=== PATIENT | female | born 1960 | race Caucasian/White ===

== ENCOUNTER 2023-06-15 17:05 | Observation (INO) | payer OTHER ==
--- OUTSIDE RECORDS SUMMARY | 2023-06-15 17:19 | XMS REPORT | Continuity of Care Document ---
:1960 Author Organization [facility] t Address [address] [facility] [address] [place] [id number] Care Team Providers Name Role Phone Pcp, Patient Does Not Have A Primary Care Physician +[phone] Jamil Porter Attending Clinician Unavailable MCKAY JIMÉNEZ Attending Clinician Unavailable Mckay Jiménez MD Attending Clinician Doctor Unassigned, [place] Attending Clinician Unavailable Lashawn Attending Clinician Unavailable Damaris Tenorio Attending Clinician [phone] Rebekah Yusuf Attending Clinician [phone] Cachorro Rivera Attending Clinician [phone] Lashawn Admitting Clinician Unavailable Payers Payer Name Policy Type Policy Number Effective Date Expiration Date Nathaniel cuevas [employer]IG[employer] [id number] 2016 00:00:00 [facility] [id number] 2006 00:00:00 Problems Condition Condition Condition Status Onset Resolution Last Treating Co mments Source Name Details Category Date Date Treatment Clinician Date Hyperchole Hyperchole Problem Active [facility] sterolemia sterolemia 1-03 Me dical 00:00: 00 Irritable Irritable Problem Active [facility] via bowel Bowel 6-21 Medical syndrome Syndrome 00:00: characteri Characteri 00 zed by zed by constipati Constipati on on Diverticul Diverticul Problem Active [facility] itis itis 5-28 Medical 00:00: 00 Prediabete Prediabete Problem Active [facility] s s - Medical 00:00: 00 Hypothyroi Hypothyroi Problem Active [facility] dism dism 03-27 Medical 00:00: 00 Depressive Depressive Problem Active [facility] disorder Disorder 03-27 Medica l 00:00: 00 Gastro-eso Gastro-eso Problem Active [facility] phageal phageal 03-24 Medical reflux Reflux 00:00: disease Disease 00 with with esophagiti Esophagiti s s Hand Hand Problem Active [facility] eczema Eczema 10-25 Medical 00:00: 00 Candidiasi Candidiasi Problem Active [facility] s of s of 17 Medical vagina Vagina 00:00: 00 Acute Acute Problem Active 2018-08 [facility] bacterial Bacterial 1- Medi natasha bronchitis Bronchitis 00:00: 00 Obstructiv Obstructiv Problem Active 2018-08 [facility] e sleep e Sleep 1-25 Medical apnea of Apnea of 00:00: adult Adult 00 Acute Acute Problem Active [facility] urinary Urinary 9-12 Medical tract Tract 00:00: infection Infection 00 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 Hypothyroi 9-06 Me dical dism dism 00:00: 00 Acute Acute Problem Active [facility] bacterial Bacterial 9-06 Medi natasha sinusitis Sinusitis 00:00: 00 Infection Infection Problem Active [facility] via of axilla of Axilla 9-06 Medi natasha 00:00: 00 Hypoglycem Hypoglycem Problem Active [facility] ia ia 2- Medical 00:00: 00 Vitamin D Vitamin D Problem Active [facility] via deficiency Deficiency 2-25 Me dical 00:00: 00 Obesity Obesity Problem Active [facility] 2-25 Medical 00:00: 00 Anxiety Anxiety Problem Active [facility] 2-25 Medical 00:00: 00 Hypertensi Hypertensi Problem Active [facility] ve ve 2-25 Medical disorder Disorder 00:00: 00 Osteoporos Osteoporos Problem Active [facility] is is 2-25 Medical 00:00: 00 Fatigue Fatigue Problem Active [facility] 2-25 Medical 00:00: 00 No known No known Disease Unive rs active active ity of problems problems [facility] Allergies, Adverse Reactions, Alerts Allergy Allergy Status Severity Reaction(s) Onset Inactive Treating Comm ents Source Name Type Date Date Clinician NO KNOWN Drug Active Univers ALLERGIE Class ity of S [facility] Family History Family Member Diagnosis Comments Start Date Stop Date Source Natural father Heart failure [facility] Natural mother Alzheimer's disease [facility] Social History Social Habit Start Date Stop Date Quantity Comments Source Exposure to Not sure [facility] SARS-CoV-2 (event) [facility] orientation [facility] History of Social 2019-03-20 2019-03-[address] function 00:00:00 00:00:00 Hospital Alcohol intake 2018-11-27 2018-11-27 [facility] 00:[facility]:00 00:00:00 non-drinker of Hospital alcohol (finding) Tobacco use and 2018-11-23 2018-11-23 Smokeless [facility] exposure 00:00:00 00:00:00 tobacco non-user Hospital Sex Assigned At [birth year] [facility] 00:[facility] Hospital Smoking Status Start Date Stop Date Source Never smoked tobacco [facility] Medications Ordered Filled Start Stop Current Ordering Indication Dosage Frequency Signature Comments Components Source Medication Medication Date Date Medication? Clinician (SIG) Name Name gerber 2019- Yes Apply to [facility] 08-02 area(s) 2 ity of acetonide 00:00: (two) [place] 0.1 % cream 00 times Medical daily. Branch gerber 2020- Yes Apply to [facility] 08-02 area(s) 2 ity of acetonide 00:00: (two) [place] 0.1 % cream 00 times Medical daily. Branch radhaamjoey 2020- Yes Apply to [facility] 08-02 area(s) 2 ity of acetonide 00:00: (two) [place] 0.1 % cream 00 times Medical daily. Branch gerber 2020- Yes Apply to [facility] ne 08-02 area(s) 2 ity of acetonide 00:00: (two) [place] 0.1 % cream 00 times Medical daily. John triamcinolo 2019-08 Yes [id number] Apply to [facility] ne -02 area(s) 2 ity of acetonide 00:00: (two) [place] 0.1 % cream 00 times Medical daily. John triamcinolo 2018-08 Yes Apply to [facility] ne 0-30 area(s) 2 ity of acetonide 00:00: (two) [place] 0.1 % cream 00 times Medical daily. John triamcinolo 2018-08 Yes Apply to [facility] ne 0-30 area(s) 2 ity of acetonide 00:00: (two) [place] 0.1 % cream 00 times Medical daily. John triamcinolo 2018-08 Yes Apply to [facility] ne 0-30 area(s) 2 ity of acetonide 00:00: (two) [place] 0.1 % cream 00 times Medical daily. John triamcinolo 2018-08 Yes Apply to [facility] ne 0-30 area(s) 2 ity of acetonide 00:00: (two) [place] 0.1 % cream 00 times Medical daily. John triamcinolo 2018-08 Yes Apply to [facility] ne 0-30 area(s) 2 ity of acetonide 00:00: (two) [place] 0.1 % cream 00 times Medical daily. John triamcinolo 2018-08 Yes Apply to [facility] ne 0-30 area(s) 2 ity of acetonide 00:00: (two) [place] 0.1 % cream 00 times Medical daily. John IBU 800 mg Yes TAKE 1 [facility] di tablet 4-[address] [facility]TH [facility] 00 EVERY 6 l HOURS NEEDED CRAMPS SYNTHROID Yes TAKE 1 [facility] i 112 mcg 3-[address] tablet 00:00: MOUTH IN [facility] 00 THE l MORNING ON AN EMPTY STOMACH cholecalcif Yes TAKE ONE Me thodi nanette, 3-[address] vitamin D3, 00:00: MOUTH ONE [facility] 50,000 unit 00 TIME PER l capsule WEEK Diclofenac 2016-08 Yes Apply to Uni vers Sodium 0-30 area(s) 4 ity of (VOLTAREN) 00:00: (four) [place] 1 % gel 00 times Medical daily as Branch needed for Pain (scale 4-6) or Pain (scale 7-10) (1g applied up to 4 times daily). Diclofenac 2016-08 Yes Apply to Uni vers Sodium 0-30 area(s) 4 ity of (VOLTAREN) 00:00: (four) [place] 1 % gel 00 times Medical daily as Branch needed for Pain (scale 4-6) or Pain (scale 7-10) (1g applied up to 4 times daily). Diclofenac 2016-08 Yes Apply to Uni vers Sodium 0-30 area(s) 4 ity of (VOLTAREN) 00:00: (four) [place] 1 % gel 00 times Medical daily as Branch needed for Pain (scale 4-6) or Pain (scale 7-10) (1g applied up to 4 times daily). Diclofenac 2016-08 Yes Apply to Uni vers Sodium 0-30 area(s) 4 ity of (VOLTAREN) 00:00: (four) [place] 1 % gel 00 times Medical daily as Branch needed for Pain (scale 4-6) or Pain (scale 7-10) (1g applied up to 4 times daily). Diclofenac 2016-08 Yes Apply to Uni vers Sodium 0-30 area(s) 4 ity of (VOLTAREN) 00:00: (four) [place] 1 % gel 00 times Medical daily as Branch needed for Pain (scale 4-6) or Pain (scale 7-10) (1g applied up to 4 times daily). Diclofenac 2016-08 Yes Apply to Uni vers Sodium 0-30 area(s) 4 ity of (VOLTAREN) 00:00: (four) [place] 1 % gel 00 times Medical daily as Branch needed for Pain (scale 4-6) or Pain (scale 7-10) (1g applied up to 4 times daily). SYNTHROID 2016-08 Yes TAKE 1 Univer s 125 mcg 0-12 TABLET BY ity of tablet 00:00: MOUTH IN [place] THE Medical MORNING ON Branch AN EMPTY STOMACHE SYNTHROID 2016-08 Yes TAKE 1 Univer s 125 mcg 0-12 TABLET BY ity of tablet 00:00: MOUTH IN [place] THE Medical MORNING ON Branch AN EMPTY STOMACHE SYNTHROID 2016-08 Yes TAKE 1 Univer s 125 mcg 0-12 TABLET BY ity of tablet 00:00: MOUTH IN [place] 00 THE Medical MORNING ON Branch AN EMPTY STOMACHE SYNTHROID 2016-08 Yes TAKE 1 Univer s 125 mcg 0-12 TABLET BY ity of tablet 00:00: MOUTH IN [place] 00 THE Medical MORNING ON Branch AN EMPTY STOMACHE SYNTHROID 2016-08 Yes TAKE 1 Univer s 125 mcg 0-12 TABLET BY ity of tablet 00:00: MOUTH IN [place] 00 THE Medical MORNING ON Branch AN EMPTY STOMACHE SYNTHROID 2016-08 Yes TAKE 1 Univer s 125 mcg 0-12 TABLET BY ity of tablet 00:00: MOUTH IN [place] 00 THE Medical MORNING ON Branch AN EMPTY STOMACHE SERTraline 2016-08 Yes TAKE 1/2 Uni vers 50 mg 0-11 TABLET BY ity of tablet 00:00: MOUTH [place] 00 DAILY FOR Medical 7 DAYS Branch THEN 1 DAILY THEREAFTER SERTraline 2016-08 Yes TAKE 1/2 Uni vers 50 mg 0-11 TABLET BY ity of tablet 00:00: MOUTH [place] 00 DAILY FOR Medical 7 DAYS Branch THEN 1 DAILY THEREAFTER SERTraline 2016-08 Yes TAKE 1/2 Uni vers 50 mg 0-11 TABLET BY ity of tablet 00:00: MOUTH [place] 00 DAILY FOR Medical 7 DAYS Branch THEN 1 DAILY THEREAFTER SERTraline 2016-08 Yes TAKE 1/2 Uni vers 50 mg 0-11 TABLET BY ity of tablet 00:00: MOUTH [place] 00 DAILY FOR Medical 7 DAYS Branch THEN 1 DAILY THEREAFTER SERTraline 2016-08 Yes TAKE 1/2 Uni vers 50 mg 0-11 TABLET BY ity of tablet 00:00: MOUTH [place] 00 DAILY FOR Medical 7 DAYS Branch THEN 1 DAILY THEREAFTER SERTraline 2016-08 Yes TAKE 1/2 Uni vers 50 mg 0-11 TABLET BY ity of tablet 00:00: MOUTH [place] 00 DAILY FOR Medical 7 DAYS Branch THEN 1 DAILY THEREAFTER sertraline 2016-08 Yes TAKE 1/2 Met hodi (ZOLOFT) 50 0-[address] MG [facility] 7 DAYS THEN 1 DAILY THEREAFTER tretinoin 2014-08 Yes Apply to [facility] ers (RETIN-A) 0-27 affected ity of 0.025 % 00:00: [place] cream 00 bedtime. Medical Branch tretinoin 2014-08 Yes Apply to [facility] ers (RETIN-A) 0-27 affected ity of 0.025 % 00:00: [place] cream 00 bedtime. Medical Branch tretinoin 2014-08 Yes Apply to [facility] ers (RETIN-A) 0-27 affected ity of 0.025 % 00:00: [place] cream 00 bedtime. Medical Branch tretinoin 2014-08 Yes Apply to [facility] ers (RETIN-A) 0-27 affected ity of 0.025 % 00:00: [place] cream 00 bedtime. Medical Branch tretinoin 2014-08 Yes Apply to [facility] ers (RETIN-A) 0-27 affected ity of 0.025 % 00:00: [place] cream 00 bedtime. Medical Branch tretinoin 2014-08 Yes Apply to [facility] ers (RETIN-A) 0-27 affected ity of 0.025 % 00:00: [place](s) [place] cream 00 bedtime. Medical Branch METFORMIN Yes 3 (three) Uni vers HCL 6-30 times ity of (METFORMIN, 18:52: daily. [place] BULK, MISC) 08 Medical Branch lamoTRIgine Yes 200mg Take 200 U nivers (LAMICTAL) 6-30 mg by ity of 200 mg 18:52: mouth [place] tablet 08 daily. Medical Branch ALPRAZolam Yes 1mg Take 1 mg Un tata (XANAX) 1 6-30 by mouth ity of mg tablet 18:52: [place]. [place] 08 Medical Branch lisdexamfet Yes 50mg Take 50 mg Univers amine 6-30 by mouth ity of (VYVANSE) 18:52: every [place] 50 mg 08 morning. Medical capsule Branch METFORMIN Yes 3 (three) Uni vers HCL 6-30 times ity of (METFORMIN, 18:52: daily. [place] BULK, MISC) 08 Medical Branch lamoTRIgine Yes 200mg Take 200 U nivers (LAMICTAL) 6-30 mg by ity of 200 mg 18:52: mouth [place] tablet 08 daily. Medical Branch ALPRAZolam Yes 1mg Take 1 mg Un tata (XANAX) 1 6-30 by mouth ity of mg tablet 18:52: as needed. [place] 08 Medical Branch lisdexamfet Yes 50mg Take 50 mg Univers amine 6-30 by mouth ity of (VYVANSE) 18:52: every [place] 50 mg 08 morning. Medical capsule Branch METFORMIN Yes 3 (three) Uni vers HCL 6-30 times ity of (METFORMIN, 18:52: daily. [employer] [employer]) 08 Medical Branch lamoTRIgine Yes 200mg Take 200 U nivers (LAMICTAL) 6-30 mg by ity of 200 mg 18:52: mouth [place] tablet 08 daily. Medical Branch ALPRAZolam Yes 1mg Take 1 mg Un tata (XANAX) 1 6-30 by mouth ity of mg tablet 18:52: as needed. [place] 08 Medical Branch lisdexamfet Yes 50mg Take 50 mg Univers amine 6-30 by mouth ity of (VYVANSE) 18:52: every [place] 50 mg 08 morning. Medical capsule Branch METFORMIN Yes 3 (three) Uni vers HCL 6-30 times ity of (METFORMIN, 13:52: daily. [employer]) 08 Medical Branch lamoTRIgine Yes 200mg Take 200 U nivers (LAMICTAL) 6-30 mg by ity of 200 mg 13:52: mouth [place] tablet 08 daily. Medical Branch ALPRAZolam Yes 1mg Take 1 mg Un tata (XANAX) 1 6-30 by mouth ity of mg tablet 13:52: as needed. [place] 08 Medical Branch lisdexamfet Yes 50mg Take 50 mg Univers amine 6-30 by mouth ity of (VYVANSE) 13:52: every [place] 50 mg 08 morning. Medical capsule Branch METFORMIN Yes 3 (three) Uni vers HCL 6-30 times ity of (METFORMIN, 13:52: daily. [employer]) 08 Medical Branch lamoTRIgine Yes 200mg Take 200 U nivers (LAMICTAL) 6-30 mg by ity of 200 mg 13:52: mouth [place] tablet 08 daily. Medical Branch ALPRAZolam Yes 1mg Take 1 mg Un tata (XANAX) 1 6-30 by mouth ity of mg tablet 13:52: as needed. [place] 08 Medical Branch lisdexamfet Yes 50mg Take 50 mg Univers amine 6-30 by mouth ity of (VYVANSE) 13:52: every [place] 50 mg 08 morning. Medical capsule Branch METFORMIN Yes 3 (three) Uni vers HCL 6-30 times ity of (METFORMIN, 13:52: daily. [place] BULK, MISC) 08 Medical Branch lamoTRIgine Yes 200mg Take 200 U nivers (LAMICTAL) 6-30 mg by ity of 200 mg 13:52: mouth [place] tablet 08 daily. Medical Branch ALPRAZolam Yes 1mg Take 1 mg Un tata (XANAX) 1 6-30 by mouth ity of mg tablet 13:52: as needed. [place] 08 Medical Branch lisdexamfet Yes 50mg Take 50 mg Univers amine 6-30 by mouth ity of (VYVANSE) 13:52: every [place] 50 mg 08 morning. Medical capsule Branch tretinoin 2012-08 Yes Apply to [facility] ers (RETIN-A) 2-30 affected ity of 0.025 % 00:00: [place] cream 00 bedtime. Medical Branch tretinoin 2012-08 Yes Apply to [facility] ers (RETIN-A) 2-30 affected ity of 0.025 % 00:00: [place] cream 00 bedtime. Medical Branch tretinoin 2012-08 Yes Apply to [facility] ers (RETIN-A) 2-30 affected ity of 0.025 % 00:00: area[place]s) at [place] cream 00 bedtime. Medical Branch tretinoin 2012-08 Yes Apply to [facility] ers (RETIN-A) 2-30 affected ity of 0.025 % 00:00: area(s) at [place] cream 00 bedtime. Medical Branch tretinoin 2012-08 Yes Apply to [facility] ers (RETIN-A) 2-30 affected ity of 0.025 % 00:00: area[place]s) at [place] cream 00 bedtime. Medical Branch tretinoin 2012-08 Yes Apply to [facility] ers (RETIN-A) 2-30 affected ity of 0.025 % 00:00: area[place] at [place] cream 00 bedtime. Medical Branch buPROPion 2010-08 Yes [id number] 150mg Take 1 Tab Univers SR 2-23 by mouth. ity of (WELLBUTRIN 00:00: [place] SR) 150 mg 00 Medical SR tablet Branch spironolact 2010-08 Yes [id number] 100mg Take 1 Tab Univers one 2-23 by mouth ity of (ALDACTONE) 00:00: daily. [place] 100 mg 00 Medical tablet Branch buPROPion 2010-08 Yes [id number] 150mg Take 1 Tab Univers SR 2-23 by mouth. ity of (WELLBUTRIN 00:00: [place] SR) 150 mg 00 Medical SR tablet Branch spironolact 2010-08 Yes [id number] 100mg Take 1 Tab Univers one 2-23 by mouth ity of (ALDACTONE) 00:00: daily. [place] 100 mg 00 Medical tablet Branch buPROPion 2010-08 Yes [id number] 150mg Take 1 Tab Univers SR 2-23 by mouth. ity of (WELLBUTRIN 00:00: [place] SR) 150 mg 00 Medical SR tablet Branch spironolact 2010-08 Yes [id number] 100mg Take 1 Tab Univers one 2-23 by mouth ity of (ALDACTONE) 00:00: daily. [place] 100 mg 00 Medical tablet Branch buPROPion 2010-08 Yes [id number] 150mg Take 1 Tab Univers SR 2-23 by mouth. ity of (WELLBUTRIN 00:00: [place] SR) 150 mg 00 Medical SR tablet Branch buPROPion 2010-08 Yes [id number] 150mg Take 1 Tab Univers SR 2-23 by mouth. ity of (WELLBUTRIN 00:00: [place] SR) 150 mg 00 Medical SR tablet Branch spironolact 2010-08 Yes [id number] 100mg Take 1 Tab Univers one 2-23 by mouth ity of (ALDACTONE) 00:00: daily. [place] 100 mg 00 Medical tablet Branch spironolact 2010-08 Yes [id number] 100mg Take 1 Tab Univers one 2-23 by mouth ity of (ALDACTONE) 00:00: daily. [place] 100 mg 00 Medical tablet Branch buPROPion 2010-08 Yes [id number] 150mg Take 1 Tab Univers SR 2-23 by mouth. ity of (WELLBUTRIN 00:00: [place] SR) 150 mg 00 Medical SR tablet Branch spironolact 2010-08 Yes [id number] 100mg Take 1 Tab Univers one 2-23 by mouth ity of (ALDACTONE) 00:00: daily. [place] 100 mg 00 Medical tablet Branch promethazin promethazin No promethazi [facility] e 25 mg e 25 mg ne 25 mg Medic al tablet TAKE tablet TAKE tablet 1 TABLET BY 1 TABLET BY TAKE 1 MOUTH EVERY MOUTH EVERY TABLET BY 4 TO 6 4 TO 6 MOUTH HOURS HOURS EVERY 4 TO NEEDED NEEDED 6 HOURS NAUSEA AND NAUSEA AND NEEDED VOMITING VOMITING NAUSEA AND VOMITING Synthroid Synthroid No Synthroid [facility] 125 mcg 125 mcg 125 mcg Medica l tablet TAKE tablet TAKE tablet 1 TABLET BY 1 TABLET BY TAKE 1 MOUTH EVERY MOUTH EVERY TABLET BY DAY DAY MOUTH DIRECTED DIRECTED EVERY DAY DIRECTED triamcinolo triamcinolo No triamcinol [facility] ne ne one Medical acetonide acetonide acetonide 0.1 % 0.1 % 0.1 % topical topical topical cream APPLY cream APPLY cream THIN COAT THIN COAT APPLY THIN TO AFFECTED TO AFFECTED COAT TO AREA TWICE AREA TWICE AFFECTED A DAY FOR A DAY FOR AREA TWICE 14 DAYS 14 DAYS A DAY FOR 14 DAYS Zyrtec 10 Zyrtec 10 No 1 Q12H Zyrtec 10 [facility] mg tablet mg tablet mg tablet Medical Take 1 Take 1 Take 1 tablet tablet tablet every 12 every 12 every 12 hours by hours by hours by oral route oral route oral route for 14 for 14 for 14 days. days. days. Align 10.5 Align 10.5 No Align 10.5 [facility] mg (10 mg (10 mg (10 Medical million million million cell) cell) cell) chewable chewable chewable tablet Take tablet Take tablet 1 tablet 1 tablet Take 1 every day every day tablet by oral by oral every day route as route as by oral directed directed route as for 90 for 90 directed days. days. for 90 days. amitriptyli amitriptyli No .5 Q1D amitriptyl [facility] ne 10 mg ne 10 mg ine 10 mg Me dical tablet Take tablet Take tablet 0.5 tablets 0.5 tablets Take 0.5 every day every day tablets by oral by oral every day route at route at by oral bedtime for bedtime for route at 30 days. 30 days. bedtime for 30 days. bupropion bupropion No 1 Q1D bupropion [facility] HCl XL 300 HCl XL 300 HCl XL 300 Medical mg 24 hr mg 24 hr mg 24 hr tablet, tablet, tablet, extended extended extended release release release Take 1 Take 1 Take 1 tablet tablet tablet every day every day every day by oral by oral by oral route for route for route for 90 days. 90 days. 90 days. buspirone 5 buspirone 5 No 1 BID buspirone [facility] mg tablet mg tablet 5 mg Medic al Take 1 Take 1 tablet tablet tablet Take 1 twice a day twice a day tablet by oral by oral twice a route as route as day by needed for needed for oral route 30 days. 30 days. as needed for for for 30 anxiety/rousseau anxiety/rousseau days. for ic disorder ic disorder anxiety/pa as needed as needed chinedu disorder as needed cholecalcif cholecalcif No cholecalci [facility] nanette nanette ferol Medical (vitamin (vitamin (vitamin D3) 1,250 D3) 1,250 D3) 1,250 mcg (50,000 mcg (50,000 mcg unit) unit) (50,000 capsule capsule unit) TAKE ONE TAKE ONE capsule CAPSULE BY CAPSULE BY TAKE ONE MOUTH ONE MOUTH ONE CAPSULE BY TIME PER TIME PER MOUTH ONE WEEK WEEK TIME PER WEEK cholestyram cholestyram No cholestyra [facility] ine (with ine (with mine (with Medical sugar) 4 sugar) 4 sugar) 4 gram powder gram powder gram for susp in for susp in powder for a packet a packet susp in a MIX 1 MIX 1 packet MIX PACKET WITH PACKET WITH 1 PACKET WATER OR WATER OR WITH WATER NON NON OR NON CARBONATED CARBONATED CARBONATED DRINK ONCE DRINK ONCE DRINK ONCE A DAY A DAY A DAY ORALLY 30 ORALLY 30 ORALLY 30 DAY(S) DAY(S) DAY(S) dicyclomine dicyclomine No dicyclomin [facility] 20 mg 20 mg e 20 mg Medical tablet TAKE tablet TAKE tablet 1 TABLET 4 1 TABLET 4 TAKE 1 TIMES A DAY TIMES A DAY TABLET 4 BY ORAL BY ORAL TIMES A ROUTE ROUTE DAY BY NEEDED FOR NEEDED FOR ORAL ROUTE 90 DAYS. 90 DAYS. NEEDED FOR 90 DAYS. fluorouraci fluorouraci No fluorourac [facility] l 5 % l 5 % il 5 % Medical topical topical topical cream cream cream fluticasone fluticasone No fluticason [facility] propionate propionate e Med ical 50 50 propionate mcg/actuati mcg/actuati 50 on nasal on nasal mcg/actuat spray,suspe spray,suspe ion nasal nsion USE 1 nsion USE 1 spray,susp SPRAY INTO SPRAY INTO ension USE EACH EACH 1 SPRAY NOSTRIL NOSTRIL INTO EACH EVERY DAY EVERY DAY NOSTRIL EVERY DAY metronidazo metronidazo No metronidaz [facility] le 500 mg le 500 mg ole 500 mg Medical tablet TAKE tablet TAKE tablet 1 TABLET 1 TABLET TAKE 1 EVERY 8 EVERY 8 TABLET HOURS BY HOURS BY EVERY 8 ORAL ROUTE ORAL ROUTE HOURS BY FOR 7 DAYS. FOR 7 DAYS. ORAL ROUTE FOR 7 DAYS. Nystop Nystop No Nystop [facility] 100,000 100,000 100,000 Medica l unit/gram unit/gram unit/gram topical topical topical powder powder powder APPLY TO APPLY TO APPLY TO THE THE THE AFFECTED AFFECTED AFFECTED AREA(S) BY AREA(S) BY AREA(S) BY TOPICAL TOPICAL TOPICAL ROUTE 2 ROUTE 2 ROUTE 2 TIMES PER TIMES PER TIMES PER DAY DAY DAY omeprazole omeprazole No omeprazole [facility] 40 mg 40 mg 40 mg Medical capsule,del capsule,del capsule,de ayed ayed layed release release release TAKE 1 TAKE 1 TAKE 1 CAPSULE BY CAPSULE BY CAPSULE BY MOUTH EVERY MOUTH EVERY MOUTH DAY DAY EVERY DAY ondansetron ondansetron No ondansetro [facility] HCl 4 mg HCl 4 mg n HCl 4 mg M edical tablet TAKE tablet TAKE tablet 2 TABLETS 2 TABLETS TAKE 2 TWICE A DAY TWICE A DAY TABLETS BY ORAL BY ORAL TWICE A ROUTE ROUTE DAY BY NEEDED FOR NEEDED FOR ORAL ROUTE 10 DAYS. 10 DAYS. NEEDED FOR 10 DAYS. OneTouch OneTouch No OneTouch [facility] via [facility] Medical Lancets 33 Lancets 33 Lancets 33 gauge gauge gauge OneTouch OneTouch No OneTouch [facility] via Ultra Blue Ultra Blue Ultra Blue Medical Test Strip Test Strip Test Strip OneTouch OneTouch No OneTouch [facility] via Ultra2 Ultra2 Ultra2 Medical Meter kit Meter kit Meter kit OneTouch OneTouch No OneTouch [facility] via UltraSoft UltraSoft UltraSoft Medical Lancets Lancets Lancets Take 1 each Take 1 each Take 1 4 times a 4 times a each 4 day by day by times a miscell. miscell. day by route for route for miscell. 30 days. 30 days. route for 30 days. prednisone prednisone No prednisone [facility] 20 mg 20 mg 20 mg Medical tablet TAKE tablet TAKE tablet 1 TABLET BY 1 TABLET BY TAKE 1 MOUTH EVERY MOUTH EVERY TABLET BY DAY DAY MOUTH EVERY DAY promethazin promethazin No promethazi [facility] e 25 mg e 25 mg ne 25 mg Medic al tablet TAKE tablet TAKE tablet 1 TABLET BY 1 TABLET BY TAKE 1 MOUTH EVERY MOUTH EVERY TABLET BY 4 TO 6 4 TO 6 MOUTH HOURS HOURS EVERY 4 TO NEEDED NEEDED 6 HOURS NAUSEA AND NAUSEA AND NEEDED VOMITING VOMITING NAUSEA AND VOMITING Synthroid Synthroid No Synthroid [facility] 125 mcg 125 mcg 125 mcg Medica l tablet TAKE tablet TAKE tablet 1 TABLET BY 1 TABLET BY TAKE 1 MOUTH EVERY MOUTH EVERY TABLET BY DAY DAY MOUTH DIRECTED DIRECTED EVERY DAY DIRECTED triamcinolo triamcinolo No triamcinol [facility] ne ne one Medical acetonide acetonide acetonide 0.1 % 0.1 % 0.1 % topical topical topical cream APPLY cream APPLY cream THIN COAT THIN COAT APPLY THIN TO AFFECTED TO AFFECTED COAT TO AREA TWICE AREA TWICE AFFECTED A DAY FOR A DAY FOR AREA TWICE 14 DAYS 14 DAYS A DAY FOR 14 DAYS Zyrtec 10 Zyrtec 10 No 1 Q12H Zyrtec 10 [facility] mg tablet mg tablet mg tablet Medical Take 1 Take 1 Take 1 tablet tablet tablet every 12 every 12 every 12 hours by hours by hours by oral route oral route oral route for 14 for 14 for 14 days. days. days. Align 10.5 Align 10.5 No Align 10.5 [facility] mg (10 mg (10 mg (10 Medical million million million cell) cell) cell) chewable chewable chewable tablet Take tablet Take tablet 1 tablet 1 tablet Take 1 every day every day tablet by oral by oral every day route as route as by oral directed directed route as for 90 for 90 directed days. days. for 90 days. bupropion bupropion No 1 Q1D bupropion [facility] HCl XL 300 HCl XL 300 HCl XL 300 Medical mg 24 hr mg 24 hr mg 24 hr tablet, tablet, tablet, extended extended extended release release release Take 1 Take 1 Take 1 tablet tablet tablet every day every day every day by oral by oral by oral route for route for route for 90 days. 90 days. 90 days. cetirizine cetirizine No 1 Q12H cetirizine [facility] 10 mg 10 mg 10 mg Medical tablet Take tablet Take tablet 1 tablet 1 tablet Take 1 every 12 every 12 tablet hours by hours by every 12 oral route oral route hours by for 14 for 14 oral route days. days. for 14 days. cholecalcif cholecalcif No cholecalci [facility] nanette nanette ferol Medical (vitamin (vitamin (vitamin D3) 1,250 D3) 1,250 D3) 1,250 mcg (50,000 mcg (50,000 mcg unit) unit) (50,000 capsule capsule unit) TAKE ONE TAKE ONE capsule CAPSULE BY CAPSULE BY TAKE ONE MOUTH ONE MOUTH ONE CAPSULE BY TIME PER TIME PER MOUTH ONE WEEK WEEK TIME PER WEEK cholestyram cholestyram No cholestyra [facility] ine (with ine (with mine (with Medical sugar) 4 sugar) 4 sugar) 4 gram powder gram powder gram for susp in for susp in powder for a packet a packet susp in a MIX 1 MIX 1 packet MIX PACKET WITH PACKET WITH 1 PACKET WATER OR WATER OR WITH WATER NON NON OR NON CARBONATED CARBONATED CARBONATED DRINK ONCE DRINK ONCE DRINK ONCE A DAY A DAY A DAY ORALLY 30 ORALLY 30 ORALLY 30 DAY(S) DAY(S) DAY(S) clobetasol- clobetasol- No clobetasol [facility] emollient emollient -emollient Medical 0.05 % 0.05 % 0.05 % topical topical topical cream APPLY cream APPLY cream A THIN A THIN APPLY A LAYER TO LAYER TO THIN LAYER THE THE TO THE AFFECTED AFFECTED AFFECTED AREA(S) BY AREA(S) BY AREA(S) BY TOPICAL TOPICAL TOPICAL ROUTE 2 ROUTE 2 ROUTE 2 TIMES PER TIMES PER TIMES PER DAY DAY DAY Nystop Nystop No Nystop [facility] 100,000 100,000 100,000 Medica l unit/gram unit/gram unit/gram topical topical topical powder powder powder APPLY TO APPLY TO APPLY TO THE THE THE AFFECTED AFFECTED AFFECTED AREA(S) BY AREA(S) BY AREA(S) BY TOPICAL TOPICAL TOPICAL ROUTE 2 ROUTE 2 ROUTE 2 TIMES PER TIMES PER TIMES PER DAY DAY DAY OneTouch OneTouch No OneTouch [facility] via [facility] Lancets 33 Lancets 33 Lancets 33 gauge gauge gauge OneTouch OneTouch No OneTouch [facility] via Ultra Blue Ultra Blue Ultra Blue Medical Test Strip Test Strip Test Strip OneTouch OneTouch No OneTouch [facility] via Ultra2 Ultra2 Ultra2 Medical Meter kit Meter kit Meter kit OneTouch OneTouch No OneTouch [facility] via UltraSoft UltraSoft UltraSoft Medical Lancets Lancets Lancets Take 1 each Take 1 each Take 1 4 times a 4 times a each 4 day by day by times a miscell. miscell. day by route for route for miscell. 30 days. 30 days. route for 30 days. Synthroid Synthroid No Synthroid [facility] 125 mcg 125 mcg 125 mcg Medica l tablet TAKE tablet TAKE tablet 1 TABLET BY 1 TABLET BY TAKE 1 MOUTH EVERY MOUTH EVERY TABLET BY DAY DAY MOUTH DIRECTED DIRECTED EVERY DAY DIRECTED triamcinolo triamcinolo No triamcinol [facility] ne ne one Medical acetonide acetonide acetonide 0.1 % 0.1 % 0.1 % topical topical topical cream APPLY cream APPLY cream THIN COAT THIN COAT APPLY THIN TO AFFECTED TO AFFECTED COAT TO AREA TWICE AREA TWICE AFFECTED A DAY FOR A DAY FOR AREA TWICE 14 DAYS 14 DAYS A DAY FOR 14 DAYS Align 10.5 Align 10.5 No Align 10.5 [facility] mg (10 mg (10 mg (10 Medical million million million cell) cell) cell) chewable chewable chewable tablet Take tablet Take tablet 1 tablet 1 tablet Take 1 every day every day tablet by oral by oral every day route as route as by oral directed directed route as for 90 for 90 directed days. days. for 90 days. bupropion bupropion No 1 Q1D bupropion [facility] HCl XL 300 HCl XL 300 HCl XL 300 Medical mg 24 hr mg 24 hr mg 24 hr tablet, tablet, tablet, extended extended extended release release release Take 1 Take 1 Take 1 tablet tablet tablet every day every day every day by oral by oral by oral route for route for route for 90 days. 90 days. 90 days. cetirizine cetirizine No 1 Q12H cetirizine [facility] 10 mg 10 mg 10 mg Medical tablet Take tablet Take tablet 1 tablet 1 tablet Take 1 every 12 every 12 tablet hours by hours by every 12 oral route oral route hours by for 14 for 14 oral route days. days. for 14 days. cholecalcif cholecalcif No cholecalci [facility] nanette nanette ferol Medical (vitamin (vitamin (vitamin D3) 1,250 D3) 1,250 D3) 1,250 mcg (50,000 mcg (50,000 mcg unit) unit) (50,000 capsule capsule unit) TAKE ONE TAKE ONE capsule CAPSULE BY CAPSULE BY TAKE ONE MOUTH ONE MOUTH ONE CAPSULE BY TIME PER TIME PER MOUTH ONE WEEK WEEK TIME PER WEEK cholestyram cholestyram No cholestyra [facility] ine (with ine (with mine (with Medical sugar) 4 sugar) 4 sugar) 4 gram powder gram powder gram for susp in for susp in powder for a packet a packet susp in a MIX 1 MIX 1 packet MIX PACKET WITH PACKET WITH 1 PACKET WATER OR WATER OR WITH WATER NON NON OR NON CARBONATED CARBONATED CARBONATED DRINK ONCE DRINK ONCE DRINK ONCE A DAY A DAY A DAY ORALLY 30 ORALLY 30 ORALLY 30 DAY(S) DAY(S) DAY(S) clobetasol- clobetasol- No clobetasol [facility] emollient emollient -emollient Medical 0.05 % 0.05 % 0.05 % topical topical topical cream APPLY cream APPLY cream A THIN A THIN APPLY A LAYER TO LAYER TO THIN LAYER THE THE TO THE AFFECTED AFFECTED AFFECTED AREA(S) BY AREA(S) BY AREA(S) BY TOPICAL TOPICAL TOPICAL ROUTE 2 ROUTE 2 ROUTE 2 TIMES PER TIMES PER TIMES PER DAY DAY DAY Nystop Nystop No Nystop [facility] 100,000 100,000 100,000 Medica l unit/gram unit/gram unit/gram topical topical topical powder powder powder APPLY TO APPLY TO APPLY TO THE THE THE AFFECTED AFFECTED AFFECTED AREA(S) BY AREA(S) BY AREA(S) BY TOPICAL TOPICAL TOPICAL ROUTE 2 ROUTE 2 ROUTE 2 TIMES PER TIMES PER TIMES PER DAY DAY DAY OneTouch OneTouch No OneTouch [facility] via [facility] Lancets 33 Lancets 33 Lancets 33 gauge gauge gauge OneTouch OneTouch No OneTouch [facility] via Ultra Blue Ultra Blue Ultra Blue Medical Test Strip Test Strip Test Strip OneTouch OneTouch No OneTouch [facility] via Ultra2 Ultra2 Ultra2 Medical Meter kit Meter kit Meter kit OneTouch OneTouch No OneTouch [facility] via UltraSoft UltraSoft UltraSoft Medical Lancets Lancets Lancets Take 1 each Take 1 each Take 1 4 times a 4 times a each 4 day by day by times a miscell. miscell. day by route for route for miscell. 30 days. 30 days. route for 30 days. Synthroid Synthroid No Synthroid [facility] 125 mcg 125 mcg 125 mcg Medica l tablet TAKE tablet TAKE tablet 1 TABLET BY 1 TABLET BY TAKE 1 MOUTH EVERY MOUTH EVERY TABLET BY DAY DAY MOUTH DIRECTED DIRECTED EVERY DAY DIRECTED triamcinolo triamcinolo No triamcinol [facility] ne ne one Medical acetonide acetonide acetonide 0.1 % 0.1 % 0.1 % topical topical topical cream APPLY cream APPLY cream THIN COAT THIN COAT APPLY THIN TO AFFECTED TO AFFECTED COAT TO AREA TWICE AREA TWICE AFFECTED A DAY FOR A DAY FOR AREA TWICE 14 DAYS 14 DAYS A DAY FOR 14 DAYS Align 10.5 Align 10.5 No Align 10.5 [facility] mg (10 mg (10 mg (10 Medical million million million cell) cell) cell) chewable chewable chewable tablet Take tablet Take tablet 1 tablet 1 tablet Take 1 every day every day tablet by oral by oral every day route as route as by oral directed directed route as for 90 for 90 directed days. days. for 90 days. amitriptyli amitriptyli No amitriptyl [facility] ne 10 mg ne 10 mg ine 10 mg Me dical tablet TAKE tablet TAKE tablet 0.5 TABLETS 0.5 TABLETS TAKE 0.5 EVERY DAY EVERY DAY TABLETS BY ORAL BY ORAL EVERY DAY ROUTE AT ROUTE AT BY ORAL BEDTIME FOR BEDTIME FOR ROUTE AT 30 DAYS. 30 DAYS. BEDTIME FOR 30 DAYS. bupropion bupropion No bupropion [facility] HCl XL 300 HCl XL 300 HCl XL 300 Medical mg 24 hr mg 24 hr mg 24 hr tablet, tablet, tablet, extended extended extended release release release TAKE 1 TAKE 1 TAKE 1 TABLET BY TABLET BY TABLET BY MOUTH EVERY MOUTH EVERY MOUTH DAY DAY EVERY DAY cetirizine cetirizine No cetirizine [facility] 10 mg 10 mg 10 mg Medical tablet TAKE tablet TAKE tablet 1 TABLET BY 1 TABLET BY TAKE 1 MOUTH EVERY MOUTH EVERY TABLET BY 12 HOURS 12 HOURS MOUTH FOR 14 DAYS FOR 14 DAYS EVERY 12 HOURS FOR 14 DAYS cholecalcif cholecalcif No cholecalci [facility] nanette nanette ferol Medical (vitamin (vitamin (vitamin D3) 1,250 D3) 1,250 D3) 1,250 mcg (50,000 mcg (50,000 mcg unit) unit) (50,000 capsule capsule unit) TAKE ONE TAKE ONE capsule CAPSULE BY CAPSULE BY TAKE ONE MOUTH ONE MOUTH ONE CAPSULE BY TIME PER TIME PER MOUTH ONE WEEK WEEK TIME PER WEEK cholestyram cholestyram No cholestyra [facility] ine (with ine (with mine (with Medical sugar) 4 sugar) 4 sugar) 4 gram powder gram powder gram for susp in for susp in powder for a packet a packet susp in a MIX 1 MIX 1 packet MIX PACKET WITH PACKET WITH 1 PACKET WATER OR WATER OR WITH WATER NON NON OR NON CARBONATED CARBONATED CARBONATED DRINK ONCE DRINK ONCE DRINK ONCE A DAY BY A DAY BY A DAY BY MOUTH FOR MOUTH FOR MOUTH FOR 30 DAYS 30 DAYS 30 DAYS clobetasol- clobetasol- No clobetasol [facility] emollient emollient -emollient Medical 0.05 % 0.05 % 0.05 % topical topical topical cream APPLY cream APPLY cream A THIN A THIN APPLY A LAYER TO LAYER TO THIN LAYER THE THE TO THE AFFECTED AFFECTED AFFECTED AREA(S) BY AREA(S) BY AREA(S) BY TOPICAL TOPICAL TOPICAL ROUTE 2 ROUTE 2 ROUTE 2 TIMES PER TIMES PER TIMES PER DAY DAY DAY meloxicam meloxicam No 1 Q1D meloxicam [facility] 7.5 mg 7.5 mg 7.5 mg Medical tablet Take tablet Take tablet 1 tablet 1 tablet Take 1 every day every day tablet by oral by oral every day route for route for by oral 30 days. 30 days. route for 30 days. Nystop Nystop No Nystop [facility] 100,000 100,000 100,000 Medica l unit/gram unit/gram unit/gram topical topical topical powder powder powder APPLY TO APPLY TO APPLY TO THE THE THE AFFECTED AFFECTED AFFECTED AREA(S) BY AREA(S) BY AREA(S) BY TOPICAL TOPICAL TOPICAL ROUTE 2 ROUTE 2 ROUTE 2 TIMES PER TIMES PER TIMES PER DAY DAY DAY OneTouch OneTouch No OneTouch [facility] via [facility] Lancets 33 Lancets 33 Lancets 33 gauge gauge gauge OneTouch OneTouch No OneTouch [facility] via Ultra Blue Ultra Blue Ultra Blue Medical Test Strip Test Strip Test Strip OneTouch OneTouch No OneTouch [facility] via Ultra2 Ultra2 Ultra2 Medical Meter kit Meter kit Meter kit OneTouch OneTouch No OneTouch [facility] via UltraSoft UltraSoft UltraSoft Medical Lancets Lancets Lancets Take 1 each Take 1 each Take 1 4 times a 4 times a each 4 day by day by times a miscell. miscell. day by route for route for miscell. 30 days. 30 days. route for 30 days. Synthroid Synthroid No Synthroid [facility] 125 mcg 125 mcg 125 mcg Medica l tablet TAKE tablet TAKE tablet 1 TABLET BY 1 TABLET BY TAKE 1 MOUTH EVERY MOUTH EVERY TABLET BY DAY DAY MOUTH DIRECTED DIRECTED EVERY DAY DIRECTED triamcinolo triamcinolo No triamcinol [facility] ne ne one Medical acetonide acetonide acetonide 0.1 % 0.1 % 0.1 % topical topical topical cream APPLY cream APPLY cream THIN COAT THIN COAT APPLY THIN TO AFFECTED TO AFFECTED COAT TO AREA TWICE AREA TWICE AFFECTED A DAY FOR A DAY FOR AREA TWICE 14 DAYS 14 DAYS A DAY FOR 14 DAYS Align 10.5 Align 10.5 No Align 10.5 [facility] mg (10 mg (10 mg (10 Medical million million million cell) cell) cell) chewable chewable chewable tablet Take tablet Take tablet 1 tablet 1 tablet Take 1 every day every day tablet by oral by oral every day route as route as by oral directed directed route as for 90 for 90 directed days. days. for 90 days. amitriptyli amitriptyli No amitriptyl [facility] ne 10 mg ne 10 mg ine 10 mg Me dical tablet TAKE tablet TAKE tablet 0.5 TABLETS 0.5 TABLETS TAKE 0.5 EVERY DAY EVERY DAY TABLETS BY ORAL BY ORAL EVERY DAY ROUTE AT ROUTE AT BY ORAL BEDTIME FOR BEDTIME FOR ROUTE AT 30 DAYS. 30 DAYS. BEDTIME FOR 30 DAYS. bupropion bupropion No bupropion [facility] HCl XL 300 HCl XL 300 HCl XL 300 Medical mg 24 hr mg 24 hr mg 24 hr tablet, tablet, tablet, extended extended extended release release release TAKE 1 TAKE 1 TAKE 1 TABLET BY TABLET BY TABLET BY MOUTH EVERY MOUTH EVERY MOUTH DAY DAY EVERY DAY cetirizine cetirizine No cetirizine [facility] 10 mg 10 mg 10 mg Medical tablet TAKE tablet TAKE tablet 1 TABLET BY 1 TABLET BY TAKE 1 MOUTH EVERY MOUTH EVERY TABLET BY 12 HOURS 12 HOURS MOUTH FOR 14 DAYS FOR 14 DAYS EVERY 12 HOURS FOR 14 DAYS cholecalcif cholecalcif No cholecalci [facility] nanette nanette ferol Medical (vitamin (vitamin (vitamin D3) 1,250 D3) 1,250 D3) 1,250 mcg (50,000 mcg (50,000 mcg unit) unit) (50,000 capsule capsule unit) TAKE ONE TAKE ONE capsule CAPSULE BY CAPSULE BY TAKE ONE MOUTH ONE MOUTH ONE CAPSULE BY TIME PER TIME PER MOUTH ONE WEEK WEEK TIME PER WEEK cholestyram cholestyram No cholestyra [facility] ine (with ine (with mine (with Medical sugar) 4 sugar) 4 sugar) 4 gram powder gram powder gram for susp in for susp in powder for a packet a packet susp in a MIX 1 MIX 1 packet MIX PACKET WITH PACKET WITH 1 PACKET WATER OR WATER OR WITH WATER NON NON OR NON CARBONATED CARBONATED CARBONATED DRINK ONCE DRINK ONCE DRINK ONCE A DAY BY A DAY BY A DAY BY MOUTH FOR MOUTH FOR MOUTH FOR 30 DAYS 30 DAYS 30 DAYS clobetasol- clobetasol- No clobetasol [facility] emollient emollient -emollient Medical 0.05 % 0.05 % 0.05 % topical topical topical cream APPLY cream APPLY cream A THIN A THIN APPLY A LAYER TO LAYER TO THIN LAYER THE THE TO THE AFFECTED AFFECTED AFFECTED AREA(S) BY AREA(S) BY AREA(S) BY TOPICAL TOPICAL TOPICAL ROUTE 2 ROUTE 2 ROUTE 2 TIMES PER TIMES PER TIMES PER DAY DAY DAY levothyroxi levothyroxi No levothyrox [facility] ne 125 mcg ne 125 mcg ine 125 Medical tablet TAKE tablet TAKE mcg tablet 1 TABLET BY 1 TABLET BY TAKE 1 MOUTH EVERY MOUTH EVERY TABLET BY DAY DAY MOUTH DIRECTED DIRECTED EVERY DAY DIRECTED meloxicam meloxicam No meloxicam [facility] 7.5 mg 7.5 mg 7.5 mg Medical tablet TAKE tablet TAKE tablet 1 TABLET BY 1 TABLET BY TAKE 1 MOUTH EVERY MOUTH EVERY TABLET BY DAY FOR 30 DAY FOR 30 MOUTH DAYS DAYS EVERY DAY FOR 30 DAYS Nystop Nystop No Nystop [facility] 100,000 100,000 100,000 Medica l unit/gram unit/gram unit/gram topical topical topical powder powder powder APPLY TO APPLY TO APPLY TO THE THE THE AFFECTED AFFECTED AFFECTED AREA(S) BY AREA(S) BY AREA(S) BY TOPICAL TOPICAL TOPICAL ROUTE 2 ROUTE 2 ROUTE 2 TIMES PER TIMES PER TIMES PER DAY DAY DAY OneTouch OneTouch No OneTouch [facility] via [facility] Lancets 33 Lancets 33 Lancets 33 gauge gauge gauge OneTouch OneTouch No OneTouch [facility] via Ultra Blue Ultra Blue Ultra Blue Medical Test Strip Test Strip Test Strip OneTouch OneTouch No OneTouch [facility] via Ultra2 Ultra2 Ultra2 Medical Meter kit Meter kit Meter kit OneTouch OneTouch No OneTouch [facility] via UltraSoft UltraSoft UltraSoft Medical Lancets Lancets Lancets Take 1 each Take 1 each Take 1 4 times a 4 times a each 4 day by day by times a miscell. miscell. day by route for route for miscell. 30 days. 30 days. route for 30 days. triamcinolo triamcinolo No triamcinol [facility] ne ne one Medical acetonide acetonide acetonide 0.1 % 0.1 % 0.1 % topical topical topical cream APPLY cream APPLY cream THIN COAT THIN COAT APPLY THIN TO AFFECTED TO AFFECTED COAT TO AREA TWICE AREA TWICE AFFECTED A DAY FOR A DAY FOR AREA TWICE 14 DAYS 14 DAYS A DAY FOR 14 DAYS Accu-Chek Accu-Chek No Accu-Chek [facility] Stephanie Plus Stephanie Plus Stephanie Plus Medical test strips test strips test Take 1 Take 1 strips strip 3 strip 3 Take 1 times a day times a day strip 3 by miscell. by miscell. times a route route day by before before miscell. meals for meals for route 30 days. 30 days. before meals for 30 days. Align 10.5 Align 10.5 No Align 10.5 [facility] mg (10 mg (10 mg (10 Medical million million million cell) cell) cell) chewable chewable chewable tablet Take tablet Take tablet 1 tablet 1 tablet Take 1 every day every day tablet by oral by oral every day route as route as by oral directed directed route as for 90 for 90 directed days. days. for 90 days. azelastine azelastine No azelastine [facility] 137 mcg 137 mcg 137 mcg Medica l (0.1 %) (0.1 %) (0.1 %) nasal spray nasal spray nasal aerosol aerosol spray SPRAY 2 SPRAY 2 aerosol SPRAY(S) SPRAY(S) SPRAY 2 TWICE A DAY TWICE A DAY SPRAY(S) BY BY TWICE A INTRANASAL INTRANASAL DAY BY ROUTE FOR ROUTE FOR INTRANASAL 30 DAYS. 30 DAYS. ROUTE FOR 30 DAYS. azithromyci azithromyci No azithromyc [facility] n 500 mg n 500 mg in 500 mg Me dical tablet TAKE tablet TAKE tablet 1 TABLET BY 1 TABLET BY TAKE 1 MOUTH DAILY MOUTH DAILY TABLET BY FOR 3 DAYS FOR 3 DAYS MOUTH DAILY FOR 3 DAYS bupropion bupropion No bupropion [facility] HCl XL 150 HCl XL 150 HCl XL 150 Medical mg 24 hr mg 24 hr mg 24 hr tablet, tablet, tablet, extended extended extended release release release TAKE 1 TAKE 1 TAKE 1 TABLET TABLET TABLET EVERY DAY EVERY DAY EVERY DAY BY ORAL BY ORAL BY ORAL ROUTE AT ROUTE AT ROUTE AT BEDTIME BEDTIME BEDTIME bupropion bupropion No 1 Q1D bupropion [facility] HCl XL 300 HCl XL 300 HCl XL 300 Medical mg 24 hr mg 24 hr mg 24 hr tablet, tablet, tablet, extended extended extended release release release Take 1 Take 1 Take 1 tablet tablet tablet every day every day every day by oral by oral by oral route for route for route for 90 days. 90 days. 90 days. buspirone 5 buspirone 5 No 1 BID buspirone [facility] mg tablet mg tablet 5 mg Medic al Take 1 Take 1 tablet tablet tablet Take 1 twice a day twice a day tablet by oral by oral twice a route as route as day by needed for needed for oral route 30 days. 30 days. as needed for for for 30 anxiety/[place]seau anxiety/rousseau days. for ic disorder ic disorder anxiety/pa as needed as needed chinedu disorder as needed cholecalcif cholecalcif No cholecalci [facility] nanette nanette ferol Medical (vitamin (vitamin (vitamin D3) 1,250 D3) 1,250 D3) 1,250 mcg (50,000 mcg (50,000 mcg unit) unit) (50,000 capsule capsule unit) TAKE ONE TAKE ONE capsule CAPSULE BY CAPSULE BY TAKE ONE MOUTH ONE MOUTH ONE CAPSULE BY TIME PER TIME PER MOUTH ONE WEEK WEEK TIME PER WEEK cholestyram cholestyram No cholestyra [facility] ine (with ine (with mine (with Medical sugar) 4 sugar) 4 sugar) 4 gram powder gram powder gram for susp in for susp in powder for a packet a packet susp in a MIX 1 MIX 1 packet MIX PACKET WITH PACKET WITH 1 PACKET WATER OR WATER OR WITH WATER NON NON OR NON CARBONATED CARBONATED CARBONATED DRINK ONCE DRINK ONCE DRINK ONCE A DAY A DAY A DAY ORALLY 30 ORALLY 30 ORALLY 30 DAY(S) DAY(S) DAY(S) ciprofloxac ciprofloxac No ciprofloxa [facility] in 500 mg in 500 mg yara 500 mg Medical tablet TAKE tablet TAKE tablet 1 TABLET 1 TABLET TAKE 1 EVERY 12 EVERY 12 TABLET HOURS BY HOURS BY EVERY 12 ORAL ROUTE ORAL ROUTE HOURS BY FOR 5 DAYS. FOR 5 DAYS. ORAL ROUTE FOR 5 DAYS. clarithromy clarithromy No clarithrom [facility] yara 500 mg yara 500 mg ycin 500 Medical tablet TAKE tablet TAKE mg tablet 1 TABLET 1 TABLET TAKE 1 EVERY 12 EVERY 12 TABLET HOURS BY HOURS BY EVERY 12 ORAL ROUTE ORAL ROUTE HOURS BY WITH MEALS WITH MEALS ORAL ROUTE FOR 7 DAYS. FOR 7 DAYS. WITH MEALS FOR 7 DAYS. diazepam 5 diazepam 5 No diazepam 5 [facility] mg tablet mg tablet mg tablet Medical dicyclomine dicyclomine No dicyclomin [facility] 20 mg 20 mg e 20 mg Medical tablet TAKE tablet TAKE tablet 1 TABLET 4 1 TABLET 4 TAKE 1 TIMES A DAY TIMES A DAY TABLET 4 BY ORAL BY ORAL TIMES A ROUTE ROUTE DAY BY NEEDED FOR NEEDED FOR ORAL ROUTE 90 DAYS. 90 DAYS. NEEDED FOR 90 DAYS. fluconazole fluconazole No fluconazol [facility] 100 mg 100 mg e 100 mg Medical tablet Take tablet Take tablet 1 tablet 1 tablet Take 1 every day every day tablet by oral by oral every day route as route as by oral directed directed route as for 7 days. for 7 days. directed for 7 days. fluorouraci fluorouraci No fluorourac [facility] l 5 % l 5 % il 5 % Medical topical topical topical cream cream cream fluticasone fluticasone No fluticason [facility] propionate propionate e Med ical 50 50 propionate mcg/actuati mcg/actuati 50 on nasal on nasal mcg/actuat spray,suspe spray,suspe ion nasal nsion USE 1 nsion USE 1 spray,susp SPRAY INTO SPRAY INTO ension USE EACH EACH 1 SPRAY NOSTRIL NOSTRIL INTO EACH EVERY DAY EVERY DAY NOSTRIL EVERY DAY metronidazo metronidazo No metronidaz [facility] le 500 mg le 500 mg ole 500 mg Medical tablet TAKE tablet TAKE tablet 1 TABLET 1 TABLET TAKE 1 EVERY 8 EVERY 8 TABLET HOURS BY HOURS BY EVERY 8 ORAL ROUTE ORAL ROUTE HOURS BY FOR 7 DAYS. FOR 7 DAYS. ORAL ROUTE FOR 7 DAYS. Nystop Nystop No Nystop [facility] 100,000 100,000 100,000 Medica l unit/gram unit/gram unit/gram topical topical topical powder powder powder APPLY TO APPLY TO APPLY TO THE THE THE AFFECTED AFFECTED AFFECTED AREA(S) BY AREA(S) BY AREA(S) BY TOPICAL TOPICAL TOPICAL ROUTE 2 ROUTE 2 ROUTE 2 TIMES PER TIMES PER TIMES PER DAY DAY DAY omeprazole omeprazole No omeprazole [facility] 40 mg 40 mg 40 mg Medical capsule,del capsule,del capsule,de ayed ayed layed release release release TAKE 1 TAKE 1 TAKE 1 CAPSULE BY CAPSULE BY CAPSULE BY MOUTH EVERY MOUTH EVERY MOUTH DAY DAY EVERY DAY ondansetron ondansetron No ondansetro [facility] HCl 4 mg HCl 4 mg n HCl 4 mg M edical tablet TAKE tablet TAKE tablet 2 TABLETS 2 TABLETS TAKE 2 TWICE A DAY TWICE A DAY TABLETS BY ORAL BY ORAL TWICE A ROUTE ROUTE DAY BY NEEDED FOR NEEDED FOR ORAL ROUTE 10 DAYS. 10 DAYS. NEEDED FOR 10 DAYS. OneTouch OneTouch No OneTouch [facility] via [facility] Lancets 33 Lancets 33 Lancets 33 gauge gauge gauge OneTouch OneTouch No OneTouch [facility] via Ultra Blue Ultra Blue Ultra Blue Medical Test Strip Test Strip Test Strip OneTouch OneTouch No OneTouch [facility] via Ultra2 Ultra2 Ultra2 Medical Meter kit Meter kit Meter kit OneTouch OneTouch No OneTouch [facility] via UltraSoft UltraSoft UltraSoft Medical Lancets Lancets Lancets Take 1 each Take 1 each Take 1 4 times a 4 times a each 4 day by day by times a miscell. miscell. day by route for route for miscell. 30 days. 30 days. route for 30 days. prednisone prednisone No prednisone [facility] 20 mg 20 mg 20 mg Medical tablet TAKE tablet TAKE tablet 1 TABLET BY 1 TABLET BY TAKE 1 MOUTH EVERY MOUTH EVERY TABLET BY DAY DAY MOUTH EVERY DAY Immunizations Ordered Immunization Filled Immunization Date Status Commen ts Source Name Name Jeanna COVID-19 Jeanna COVID-19 2020-10-23 Completed Vaccine Vaccine 00:00:00 Jeanna COVID-19 Jeanna COVID-19 2020-09-26 Completed Vaccine Vaccine 00:00:00 Vital Signs Vital Name Observation Time Observation Value Comments Source BP Diastolic 2022-03-08 00:00:00 80 mm[Hg] [facility] Height 2022-03-08 00:00:00 70 [in_i] [facility] BMI (Body Mass Index) 2022-03-08 00:00:00 39.3 kg/m2 [facility] BP Systolic 2022-03-08 00:00:00 130 mm[Hg] [facility] Body Weight 2022-03-08 00:00:00 4384 [oz_av] [facility] BP Diastolic 2021-08-03 00:00:00 88 mm[Hg] [facility] Height 2021-08-03 00:00:00 70 [in_i] [facility] BMI (Body Mass Index) 2021-08-03 00:00:00 38.9 kg/m2 [facility] BP Systolic 2021-08-03 00:00:00 150 mm[Hg] [facility] Body Weight 2021-08-03 00:00:00 4336 [oz_av] [facility] BP Diastolic 2021-07-17 00:00:00 79 mm[Hg] [facility] Height 2021-07-17 00:00:00 70 [in_i] [facility] BMI (Body Mass Index) 2021-07-17 00:00:00 38.9 kg/m2 [facility] BP Systolic 2021-07-17 00:00:00 152 mm[Hg] [facility] Body Weight 2021-07-17 00:00:00 4336 [oz_av] [facility] BP Diastolic 2021-07-09 00:00:00 90 mm[Hg] [facility] Height 2021-07-09 00:00:00 70 [in_i] [facility] BMI (Body Mass Index) 2021-07-09 00:00:00 38.6 kg/m2 [facility] BP Systolic 2021-07-09 00:00:00 143 mm[Hg] [facility] Body Weight 2021-07-09 00:00:00 4304 [oz_av] [facility] Procedures Procedure Date / Time Performing Clinician Source Performed ASSIGNMENT OF BENEFITS 2023-03-14 20:09:16 Doctor Unassigned, No [facility] MAMMO, screening, 2021-07-09 00:00:00 [facility] digital, bilateral Colonoscopy 2021-02-22 00:00:00 [facility] ASSIGNMENT OF BENEFITS 2020-06-02 22:34:31 Doctor Unassigned, No [facility] Plan of Care Planned Activity Planned Date Details Comments Source Future Scheduled Test 2023-05-26 Screening for Meth[facility] 12:51:08 malignant neoplasm of colon (procedure) [code = 473304117] Future Scheduled Test 2023-05-26 Screening for [facility] 12:51:08 malignant neoplasm of colon (procedure) [code = 889088189] Future Scheduled Test 2023-05-26 Screening for [facility] 12:51:08 malignant neoplasm of colon (procedure) [code = 227715714] Future Scheduled Test 2023-05-26 COVID-19 VACCINE [facility] 12:51:08 (#1) [code = COVID-19 VACCINE (#1)] Future Scheduled Test 2023-05-26 Screening for [facility] 12:51:08 malignant neoplasm of cervix (procedure) [code = 152378562] Future Scheduled Test 2023-05-26 BREAST CANCER [facility] 12:51:08 SCREENING [code = BREAST CANCER SCREENING] Future Scheduled Test 2023-05-26 Screening for [facility] 12:51:08 malignant neoplasm of colon (procedure) [code = 405082894] Future Scheduled Test 2023-05-26 Screening for [facility] 12:51:08 malignant neoplasm of colon (procedure) [code = 806356417] Future Scheduled Test 2023-05-26 SHINGLES VACCINES [facility] 12:51:08 (1 of 2) [code = SHINGLES VACCINES (1 of 2)] Future Scheduled Test 2023-05-26 INFLUENZA VACCINE [facility] 12:51:08 (#1) [code = INFLUENZA VACCINE (#1)] Diagnostic Test 2022-03-08 thyroid panel, [facility] 00:00:00 serum [code = thyroid panel, serum] Diagnostic Test 2022-03-08 CBC w/ auto diff [facility] 00:00:00 [code = CBC w/ auto diff] Diagnostic Test 2022-03-08 lipid panel, serum [facility] Pending 00:00:00 [code = lipid panel, serum] Diagnostic Test 2022-03-08 CMP, serum or [facility] natasha Pending 00:00:00 plasma [code = CMP, serum or plasma] Diagnostic Test 2022-03-08 HbA1c (hemoglobin [facility] P[facility] 00:00:00 A1c), blood [code = HbA1c (hemoglobin A1c), blood] Diagnostic Test 2022-03-08 vitamin D, [facility] 00:00:00 25-hydroxy, total, serum [code = vitamin D, 25-hydroxy, total, serum] Encounters Start End Encounter Admission Attending Care Care Encounter Source Date/Time Date/Time Type Type Clinicians Facility Department ID 2023-06-[address] [facility] [id number] Common 11:53:00 Jamil [id number] [facility] 2023-06-10 Outpatient Porter, [facility] [id number] Common 08:14:00 Jamil [id number] [facility] 2023-05-26 Outpatient Porter, [facility] [id number] Common 10:02:00 Jamil [id number] [facility] 2023-03-29 [facility] [id number] Common 08:26:01 Jamil [id number] [facility] 2023-03-14 2023-03-14 [facility] [id number] Univers 15:15:00 16:19:33 MCKAY kerns of [facility] 2023-03-14 2023-03-14 [facility] 1.2.840.114 [id number] Univers 15:15:00 16:19:33 Visit Mckay BARAJAS 350.1.13.10 ity of [facility] 4.2.7.2.686 [facility] [id number] [facility] [place] [address] [facility] 2023-03-14 2023-03-14 Orders Doctor HSERI [id number] [id number] Univers 00:00:00 00:00:00 Only Unassigned, THEO 350.1.13.10 ity of [place] [facility] 4.2.7.2.686 [facility] [id number] [facility] [address] 2022-04-06 2022-04-06 Outpatient PATRIA_HO_Jovon PRIV PRIV [id number] [facility] 00:00:00 00:00:00 [place] [id number] [facility] 2022-04-02 2022-04-02 Damaris [facility] [id number] [facility] 00:00:00 00:00:00 Natacha Tony [facility] aurelio figueroa MD: Shae 6608 [facility], Office [address] [address] , Ph. 2022-04-02 2022-04-02 Outpatient Machado-Guld PRIV PRIV [id number] 00:00:00 00:00:00 Damaris sifuentes [id number] 2022-03-27 2022-03-27 Outpatient GC_BATC_Fow PRIV PRIV [id number] [facility] 00:00:00 00:00:00 ler-Gulde [id number] [facility] 2022-03-09 2022-03-09 Outpatient GC_BATC_Fow PRIV PRIV [id number] [facility] 00:00:00 00:00:00 ler-Gulde [id number] [facility] 2022-03-08 2022-03-08 Outpatient GC_BATC_Fow PRIV PRIV [id number] [facility] 00:00:00 00:00:00 ler-Gulde [id number] [facility] 2022-03-08 2022-03-08 Damaris [facility] 00:00:00 00:00:00 CarterMolly [facility] aurelio figueroa MD: GC_BATC_Gul 6608 [facility], Office [address] [address] , Ph. 2022-03-08 2022-03-08 Outpatient Machado-Guld PRIV PRIV [id number] 00:00:00 00:00:00 Damaris sifuentes [id number] 2022-03-05 2022-03-05 Outpatient GC_BATC_Fow PRIV PRIV [id number] [facility] 00:00:00 00:00:00 ler-Gulde [id number] [facility] 2021-10-26 2021-10-26 Outpatient GC_BATC_Fow PRIV PRIV [id number] [facility] 01:18:00 01:18:00 ler-Gulde [id number] [facility] 2021-09-28 2021-09-28 Outpatient GC_BATC_Fow PRIV PRIV [id number] [facility] 01:41:00 01:41:00 ler-Gulde [id number] [facility] 2021-08-31 2021-08-31 Outpatient GC_BATC_Fow PRIV PRIV [id number] [facility] 01:21:00 01:21:00 ler-Gulde [id number] [facility] 2021-08-03 2021-08-03 Outpatient GC_BATC_Fow PRIV PRIV [id number] [facility] 01:38:00 01:38:00 ler-Gulde [id number] [facility] 2021-08-03 2021-08-03 Rebekah [facility] 00:00:00 00:00:00 Paramjit : [facility] aurelio [address] GC_BATC_Gul [place] [address], [place] [address] , Ph. 2021-08-03 2021-08-03 Outpatient Paramjit, PRIV PRIV [id number] 00:00:00 00:00:00 Rebekah [id number] 2021-07-30 2021-07-30 Outpatient GC_BATC_Fow PRIV PRIV 209 [id number] [facility] 11:25:00 11:25:00 ler-Gulde [id number] [facility] 2021-07-30 2021-07-30 Damaris [facility] [id number] [facility] 00:00:00 00:00:00 Natacha [facility] aurelio figueroa MD: GC_BATC_Gul [address] [address] , Ph. 2021-07-30 2021-07-30 Outpatient Machado-Guld PRIV PRIV [id number] 00:00:00 00:00:00 Damaris sifuentes [id number] 2021-07-22 2021-07-22 Outpatient GC_BATC_Fow PRIV PRIV [id number] [facility] 08:09:00 08:09:00 ler-Gulde [id number] [facility] 2021-07-17 2021-07-17 Outpatient GC_BATC_Fow PRIV PRIV [id number] [facility] 09:38:00 09:38:00 ler-Gulde [id number] [facility] 2021-07-17 2021-07-17 Outpatient GC_BATC_Fow PRIV PRIV [id number] [facility] 05:07:00 05:07:00 ler-Gulde [id number] [facility] 2021-07-17 2021-07-17 Outpatient Cachorro Rivera PRIV PRIV [id number] 00:00:00 00:00:00 [id number] 2021-07-17 2021-07-17 XIAO [facility] [id number] [facility] 00:00:00 00:00:00 DO: [facility]8 [facility] GC_BATC_Gul [facility] [address], [place] [address] , Ph. 2021-07-09 2021-07-09 Outpatient GC_BATC_Fow PRIV PRIV [id number] [facility] 03:48:00 03:48:00 ler-Gulde [id number] [facility] 2021-07-09 2021-07-09 Rebekah [facility] [id number] [facility] 00:00:00 00:00:00 Paramjit, DO: [facility] - [facility] [address] GC_BATC_Gul [facility] [address], [place] [address] , Ph. 2021-07-09 2021-07-09 Outpatient Paramjit, PRIV PRIV [id number] 00:00:00 00:00:00 Rebekah [id number] 2021-07-02 2021-07-02 Outpatient GC_BATC_Fow PRIV PRIV [id number] [facility] 01:04:00 01:04:00 ler-Gulde [id number] [facility] 2020-10-23 2020-10-23 Outpatient GCCOVIDV GCCOVIDV [id number] GCCOVID 00:00:00 00:00:00 V 2020-09-26 2020-09-26 Outpatient GCCOVIDV GCCOVIDV [id number] [facility]OVID 00:00:00 00:00:00 V 2020-06-02 2020-06-02 [facility] [id number] [id number] Univers 16:35:04 17:27:17 Visit Mckay BARAJAS 350.1.13.10 ity [facility] 4.2.7.2.686 [facility] [id number] [facility] AND [address] [facility] 2020-06-02 2020-06-02 Outpatient [facility] [id number] Univers 16:30:00 16:30:00 MCKAY ity [facility] 2020-06-02 2020-06-02 Orders Doctor SHERI [id number] [id number] Univers 00:00:00 00:00:00 Only Unassigned, THEO 350.1.13.10 ity of [place] [facility] 4.2.7.2.686 [facility] [id number] [address] Results Test Description Test Time Test Comments Results Result Comments Source thyroid panel, serum 2022-03-25 00:00:00 Test Item Value Reference Range Interpretation Comme nts Triiodothyronine resin uptake (T3RU) in Serum or Plasma 28 % 22-35 (test code = 3050-2) Thyroxine (T4) [Mass/volume] in Serum or Plasma (test code = 8.7 mcg/dL 5.1-11.9 3026-2) Thyroxine (T4) free index in Serum or Plasma by calculation 2.4 1.4-3.8 (test code = 39545-2) Thyrotropin [Units/volume] in Serum or Plasma (test code = 2.04 mIU/L 0.40-4.50 3016-3) [facility] panel - Serum or [id number] 00:00:00 Test Item Value Reference Range Interpretation Comments Cholesterol 175 mg/dL <200 [Mass/volume] in Serum or Plasma (test code = 2093-3) Cholesterol in HDL 40 mg/dL See_Comment L [Automat ed [Mass/volume] in message] Th e system Serum or Plasma (test which generated code = 5-9) this result transmitted reference range : > or = 50. The reference range was not used to interpret this result as normal/abnormal . Triglyceride 103 mg/dL <150 [Mass/volume] in Serum or Plasma (test code = 2571-8) Cholesterol in LDL 114 mg/dL H [Mass/volume] in (calc) Serum or Plasma by calculation (test code = 82670-6) Cholesterol.total/Cho 4.4 (calc) <5.0 lesterol in HDL [Mass Ratio] in Serum or Plasma (test code = 9830-1) Cholesterol non HDL 135 mg/dL <130 H [Mass/volume] in (calc) Serum or Plasma (test code = 59390-0) [facility] - Serum or [id number] 00:00:00 Test Item Value Reference Range Interpretation Comments Glucose [Mass/volume] 104 mg/dL 65-99 H in Serum or Plasma (test code = 2345-7) Urea nitrogen 9 mg/dL 7-25 [Mass/volume] in Serum or Plasma (test code = 3094-0) Creatinine 0.69 mg/dL 0.50-1.05 [Mass/volume] in Serum or Plasma (test code = 2160-0) eGFR (test code = 99 mL/min/1.73m2 See_Comment [Auto mated eGFR) message] The system which generated this result transmitted reference range : > or = 60. The reference range was not used to interpret this result as normal/abnormal . Urea not applicable 6-22 nitrogen/Creatinine [Mass Ratio] in Serum or Plasma (test code = 3097-3) Sodium [Moles/volume] 140 mmol/L 135-146 in Serum or Plasma (test code = 2951-2) Potassium 4.3 mmol/L 3.5-5.3 [Moles/volume] in Serum or Plasma (test code = 2823-3) Chloride 107 mmol/L 98-110 [Moles/volume] in Serum or Plasma (test code = 2074-0) Carbon dioxide, total 26 mmol/L 20-32 [Moles/volume] in Serum or Plasma (test code = 2027-) Calcium [Mass/volume] 8.9 mg/dL 8.6-10.4 in Serum or Plasma (test code = 29764-1) Protein [Mass/volume] 6.8 g/dL 6.1-8.1 in Serum or Plasma (test code = 2885-2) Albumin [Mass/volume] 4.2 g/dL 3.6-5.1 in Serum or Plasma (test code = 1751-7) Globulin [Mass/volume] 2.6 g/dL (calc) 1.9-3.7 in Serum by calculation (test code = 63892-6) Albumin/Globulin [Mass 1.6 (calc) 1.0-2.5 Ratio] in Serum or Plasma (test code = 1759-0) Bilirubin.total 0.5 mg/dL 0.2-1.2 [Mass/volume] in Serum or Plasma (test code = 1974-) Alkaline phosphatase 74 U/L 37-153 [Enzymatic activity/volume] in Serum or Plasma (test code = 6768-6) Aspartate 89 U/L 10-35 H aminotransferase [Enzymatic activity/volume] in Serum or Plasma (test code = 1920-8) Alanine 108 U/L 6-29 H aminotransferase [Enzymatic activity/volume] in Serum or Plasma (test code = 1742-6) [facility] in [id number] 00:00:00 Test Item Value Reference Range Interpretation Comments Hemoglobin 5.8 % of total HGB <5.7 H A1c/Hemoglobin.total in Blood (test code = 4548-4) [facility] W Auto Differential panel - [id number] 00:00:00 Test Item Value Reference Range Interpretation Comments Leukocytes [#/volume] in 7.6 thousand/uL 3.8-10.8 Blood by Automated count (test code = 6690-2) Erythrocytes [#/volume] in 4.67 million/uL 3.80-5.10 Blood by Automated count (test code = 789-8) Hemoglobin [Mass/volume] in 14.8 g/dL 11.7-15.5 Blood (test code = 718-7) Hematocrit [Volume Fraction] 43.6 % 35.0-45.0 of Blood by Automated count (test code = 4544-3) Erythrocyte mean corpuscular 93.4 fL 80.0-100.0 volume [Entitic volume] by Automated count (test code = 787-2) Erythrocyte mean corpuscular 31.7 pg 27.0-33.0 hemoglobin [Entitic mass] by Automated count (test code = 785-6) Erythrocyte mean corpuscular 33.9 g/dL 32.0-36.0 hemoglobin concentration [Mass/volume] by Automated count (test code = 786-4) Erythrocyte distribution 12.7 % 11.0-15.0 width [Ratio] by Automated count (test code = 788-0) Platelets [#/volume] in Blood 281 thousand/uL 140-400 by Automated count (test code = 777-3) Platelet mean volume [Entitic 9.6 fL 7.5-12.5 volume] in Blood by Nicolás-Daniel (test code = 776-5) Neutrophils [#/volume] in 4545 cells/uL 6661-5508 Blood by Automated count (test code = 751-8) Lymphocytes [#/volume] in 2204 cells/uL 850-3900 Blood by Automated count (test code = 731-0) Monocytes [#/volume] in Blood 631 cells/uL 200-950 by Automated count (test code = 742-7) Eosinophils [#/volume] in 167 cells/uL 15-500 Blood by Automated count (test code = 711-2) Basophils [#/volume] in Blood 53 cells/uL 0-200 by Automated count (test code = 704-7) Neutrophils/100 leukocytes in 59.8 % Blood by Automated count (test code = 770-8) Lymphocytes/100 leukocytes in 29.0 % Blood by Automated count (test code = 736-9) Monocytes/100 leukocytes in 8.3 % Blood by Automated count (test code = 5905-5) Eosinophils/100 leukocytes in 2.2 % Blood by Automated count (test code = 713-8) Basophils/100 leukocytes in 0.7 % Blood by Automated count (test code = 706-2) [facility] test [id number] 00:00:00 Test Item Value Reference Range Interpretation Comments RAM1 (test code = RAM1) awn test refused (test code = awn test 99360 refused) [facility] VkovokeKFAR-JyO-9 (COVID-19) RNA [Presence] in Respiratory specimen by MARIAN with probe [id number] 00:00:00 Test Item Value Reference Range Interpretation Comments covid-19 nasal/nasopharynx (test not detected not detected code = covid-19 nasal/nasopharynx) [facility] ZplarohIHNX-PtO-5 (COVID-19) RNA [Presence] in Respiratory specimen by MARIAN with probe [id number] 00:00:00 Test Item Value Reference Range Interpretation Comments covid-19 nasal/nasopharynx (test not detected not detected code = covid-19 nasal/nasopharynx) [facility] MedicalTissue transglutaminase IgA + Gliadin peptides IgA and IgG panel - [id number] 00:00:00 Test Item Value Reference Range Interpretation Comments Laboratory comment [Text] in Report see note Narrative (test code = 18768-4) Tissue transglutaminase IgA Ab <1.0 [Units/volume] in Serum (test code = 62208-0) IgA [Mass/volume] in Serum or Plasma 95 mg/dL 47-310 (test code = 2458-8) [facility] MedicalTissue transglutaminase IgA + Gliadin peptides IgA and IgG panel - [id number] 00:00:00 Test Item Value Reference Range Interpretation Comments Laboratory comment [Text] in Report see note Narrative (test code = 21233-7) Tissue transglutaminase IgA Ab <1.0 [Units/volume] in Serum (test code = 72083-9) IgA [Mass/volume] in Serum or Plasma 95 mg/dL 47-310 (test code = 2458-8) [facility] MedicalMicroalbumin/Creatinine [Mass Ratio] in [id number] 00:00:00 Test Item Value Reference Range Interpretation Comments Creatinine [Mass/volume] in 57 mg/dL 20-275 Urine (test code = 2161-8) Microalbumin [Mass/volume] in 0.2 mg/dL see note: Urine (test code = 88896-7) Albumin/Creatinine [Mass 4 mcg/mg creat <30 ratio] in Urine (test code = 9318-7) [facility] MedicalMicroalbumin/Creatinine [Mass Ratio] in [id number] 00:00:00 Test Item Value Reference Range Interpretation Comments Creatinine [Mass/volume] in 57 mg/dL 20-275 Urine (test code = 2161-8) Microalbumin [Mass/volume] in 0.2 mg/dL see note: Urine (test code = 93313-7) Albumin/Creatinine [Mass 4 mcg/mg creat <30 ratio] in Urine (test code = 9318-7) [facility], [id number] 00:00:00 Test Item Value Reference Range Interpretation Comments Triiodothyronine resin uptake 28 % 22-35 (T3RU) in Serum or Plasma (test code = 3050-2) Thyroxine (T4) [Mass/volume] in 9.8 mcg/dL 5.1-11.9 Serum or Plasma (test code = 3026-2) Thyroxine (T4) free index in Serum 2.7 1.4-3.8 or Plasma by calculation (test code = 86629-8) Thyrotropin [Units/volume] in 2.84 mIU/L 0.40-4.50 Serum or Plasma (test code = 3016-3) [facility] 1995 panel - Serum or [id number] 00:00:00 Test Item Value Reference Range Interpretation Comments Cholesterol 187 mg/dL <200 [Mass/volume] in Serum or Plasma (test code = 2093-3) Cholesterol in HDL 39 mg/dL See_Comment L [Automat ed [Mass/volume] in message] Th e system Serum or Plasma (test which generated code = 2085-9) this result transmitted reference range : > or = 50. The reference range was not used to interpret this result as normal/abnormal . Triglyceride 123 mg/dL <150 [Mass/volume] in Serum or Plasma (test code = 2571-8) Cholesterol in LDL 125 mg/dL H [Mass/volume] in (calc) Serum or Plasma by calculation (test code = 61106-7) Cholesterol.total/Cho 4.8 (calc) <5.0 lesterol.in HDL [Mass ratio] in Serum or Plasma (test code = 9830-1) Cholesterol non HDL 148 mg/dL <130 H [Mass/volume] in (calc) Serum or Plasma (test code = 64306-6) [facility] 1999 panel - Serum or [id number] 00:00:00 Test Item Value Reference Range Interpretation Comments Glucose [Mass/volume] 110 mg/dL 65-99 H in Serum or Plasma (test code = 2345-7) Urea nitrogen 11 mg/dL 7-25 [Mass/volume] in Serum or Plasma (test code = 3094-0) Creatinine 0.74 mg/dL 0.50-1.05 [Mass/volume] in Serum or Plasma (test code = 2160-0) Glomerular filtration 89 mL/min/1.73m2 See_Comment [ Automated rate/1.73 sq message] The M.predicted among system [facility] non-blacks [Volume generated this Rate/Area] in Serum, result Plasma or Blood by transmitt ed Creatinine-based reference r jeanette: formula (CKD-EPI) > or = 60. The (test code = 96999-2) refere nce range was not used to interpret this result as normal/abnormal . Glomerular filtration 103 See_Comment [Auto mated rate/1.73 sq mL/min/1.73m2 message] The M.predicted among [facility] blacks [Volume generated thi s Rate/Area] in Serum, result Plasma or Blood by transmitt ed Creatinine-based reference r jeanette: formula (CKD-EPI) > or = 60. The (test code = 53838-9) refere nce range was not used to interpret this result as normal/abnormal . Urea not applicable 6-22 nitrogen/Creatinine [Mass Ratio] in Serum or Plasma (test code = 3097-3) Sodium [Moles/volume] 141 mmol/L 135-146 in Serum or Plasma (test code = 2951-2) Potassium 4.3 mmol/L 3.5-5.3 [Moles/volume] in Serum or Plasma (test code = 2823-3) Chloride 104 mmol/L 98-110 [Moles/volume] in Serum or Plasma (test code = 5-0) Carbon dioxide, total 26 mmol/L 20-32 [Moles/volume] in Serum or Plasma (test code = 2027-9) Calcium [Mass/volume] 9.1 mg/dL 8.6-10.4 in Serum or Plasma (test code = 18191-8) Protein [Mass/volume] 6.7 g/dL 6.1-8.1 in Serum or Plasma (test code = 2885-2) Albumin [Mass/volume] 4.6 g/dL 3.6-5.1 in Serum or Plasma (test code = 1751-7) Globulin [Mass/volume] 2.1 g/dL (calc) 1.9-3.7 in Serum by calculation (test code = 37684-4) Albumin/Globulin [Mass 2.2 (calc) 1.0-2.5 Ratio] in Serum or Plasma (test code = 1759-0) Bilirubin.total 0.4 mg/dL 0.2-1.2 [Mass/volume] in Serum or Plasma (test code = 1974-) Alkaline phosphatase 72 U/L 37-153 [Enzymatic activity/volume] in Serum or Plasma (test code = 6768-6) Aspartate 53 U/L 10-35 H aminotransferase [Enzymatic activity/volume] in Serum or Plasma (test code = 1920-8) Alanine 62 U/L 6-29 H aminotransferase [Enzymatic activity/volume] in Serum or Plasma (test code = 1742-6) [facility] A[facility]/Hemoglobin.total in [id number] 00:00:00 Test Item Value Reference Range Interpretation Comments Hemoglobin 5.7 % of total HGB <5.7 H A1c/Hemoglobin.total in Blood (test code = 4548-4) [facility] HospitalBtfftmu65-Uvcspgbgftgyga D3+25-Hydroxyvitamin D2 [Mass/volume] in Serum or [id number] 00:00:00 Test Item Value Reference Range Interpretation Comments 25-hydroxyvitamin D3 [Mass/volume] 36 NG/mL 30-100 in Serum or Plasma (test code = 1988-09) [facility] W Auto Differential panel - [id number] 00:00:00 Test Item Value Reference Range Interpretation Comments Leukocytes [#/volume] in 7.9 thousand/uL 3.8-10.8 Blood by Automated count (test code = 6690-2) Erythrocytes [#/volume] in 4.71 million/uL 3.80-5.10 Blood by Automated count (test code = 789-8) Hemoglobin [Mass/volume] in 14.5 g/dL 11.7-15.5 Blood (test code = 718-7) Hematocrit [Volume Fraction] 43.0 % 35.0-45.0 of Blood by Automated count (test code = 4544-3) Erythrocyte mean corpuscular 91.3 fL 80.0-100.0 volume [Entitic volume] by Automated count (test code = 787-2) Erythrocyte mean corpuscular 30.8 pg 27.0-33.0 hemoglobin [Entitic mass] by Automated count (test code = 785-6) Erythrocyte mean corpuscular 33.7 g/dL 32.0-36.0 hemoglobin concentration [Mass/volume] by Automated count (test code = 786-4) Erythrocyte distribution 12.5 % 11.0-15.0 width [Ratio] by Automated count (test code = 788-0) Platelets [#/volume] in Blood 302 thousand/uL 140-400 by Automated count (test code = 777-3) Platelet mean volume [Entitic 9.7 fL 7.5-12.5 volume] in Blood by Nicolás-Daniel (test code = 776-5) Neutrophils [#/volume] in 4701 cells/uL 6599-4945 Blood by Automated count (test code = 751-8) Lymphocytes [#/volume] in 2323 cells/uL 850-3900 Blood by Automated count (test code = 731-0) Monocytes [#/volume] in Blood 679 cells/uL 200-950 by Automated count (test code = 742-7) Eosinophils [#/volume] in 150 cells/uL 15-500 Blood by Automated count (test code = 711-2) Basophils [#/volume] in Blood 47 cells/uL 0-200 by Automated count (test code = 704-7) Neutrophils/100 leukocytes in 59.5 % Blood by Automated count (test code = 770-8) Lymphocytes/100 leukocytes in 29.4 % Blood by Automated count (test code = 736-9) Monocytes/100 leukocytes in 8.6 % Blood by Automated count (test code = 5905-5) Eosinophils/100 leukocytes in 1.9 % Blood by Automated count (test code = 713-8) Basophils/100 leukocytes in 0.6 % Blood by Automated count (test code = 706-2) [facility] MedicalHelicobacter pylori [Presence] in Stomach by urea breath test 2021-07-13 00:00:00 Test Item Value Reference Range Interpretation Comments Helicobacter pylori [Presence] not detected not detected in Stomach by urea breath test (test code = 27850-5) [facility] Ag 125 [Units/volume] in Serum or [id number] 00:00:00 Test Item Value Reference Range Interpretation Comments Cancer Ag 125 [Units/volume] in Serum 11 U/mL <35 or Plasma (test code = 58075-3) [facility], [id number] 00:00:00 Test Item Value Reference Range Interpretation Comments Triiodothyronine resin uptake 28 % 22-35 (T3RU) in Serum or Plasma (test code = 3050-2) Thyroxine (T4) [Mass/volume] in 9.8 mcg/dL 5.1-11.9 Serum or Plasma (test code = 3026-2) Thyroxine (T4) free index in Serum 2.7 1.4-3.8 or Plasma by calculation (test code = 74562-6) Thyrotropin [Units/volume] in 2.84 mIU/L 0.40-4.50 Serum or Plasma (test code = 3016-3) [facility] 1995 panel - Serum or [id number] 00:00:00 Test Item Value Reference Range Interpretation Comments Cholesterol 187 mg/dL <200 [Mass/volume] in Serum or Plasma (test code = 2093-3) Cholesterol in HDL 39 mg/dL See_Comment L [Automat ed [Mass/volume] in message] Th e system Serum or Plasma (test which generated code = 2085-9) this result transmitted reference range : > or = 50. The reference range was not used to interpret this result as normal/abnormal . Triglyceride 123 mg/dL <150 [Mass/volume] in Serum or Plasma (test code = 2571-8) Cholesterol in LDL 125 mg/dL H [Mass/volume] in (calc) Serum or Plasma by calculation (test code = 40698-5) Cholesterol.total/Cho 4.8 (calc) <5.0 lesterol.in HDL [Mass ratio] in Serum or Plasma (test code = 9830-1) Cholesterol non HDL 148 mg/dL <130 H [Mass/volume] in (calc) Serum or Plasma (test code = 12945-8) [facility] - Serum or [id number] 00:00:00 Test Item Value Reference Range Interpretation Comments Glucose [Mass/volume] 110 mg/dL 65-99 H in Serum or Plasma (test code = 2345-7) Urea nitrogen 11 mg/dL 7-25 [Mass/volume] in Serum or Plasma (test code = 3094-0) Creatinine 0.74 mg/dL 0.50-1.05 [Mass/volume] in Serum or Plasma (test code = 2160-0) Glomerular filtration 89 mL/min/1.73m2 See_Comment [ Automated rate/1.73 sq message] The M.predicted among [facility] non-blacks [Volume generated this Rate/Area] in Serum, result Plasma or Blood by transmitt ed Creatinine-based reference r jeanette: formula (CKD-EPI) > or = 60. The (test code = 62461-4) refere nce range was not used to interpret this result as normal/abnormal . Glomerular filtration 103 See_Comment [Auto mated rate/1.73 sq mL/min/1.73m2 message] The M.predicted among [facility] blacks [Volume generated thi s Rate/Area] in Serum, result Plasma or Blood by transmitt ed Creatinine-based reference r jeanette: formula (CKD-EPI) > or = 60. The (test code = 96624-5) refere nce range was not used to interpret this result as normal/abnormal . Urea not applicable 6-22 nitrogen/Creatinine [Mass Ratio] in Serum or Plasma (test code = 3097-3) Sodium [Moles/volume] 141 mmol/L 135-146 in Serum or Plasma (test code = 2951-2) Potassium 4.3 mmol/L 3.5-5.3 [Moles/volume] in Serum or Plasma (test code = 2823-3) Chloride 104 mmol/L 98-110 [Moles/volume] in Serum or Plasma (test code = 5-0) Carbon dioxide, total 26 mmol/L 20-32 [Moles/volume] in Serum or Plasma (test code = 2027-9) Calcium [Mass/volume] 9.1 mg/dL 8.6-10.4 in Serum or Plasma (test code = 72454-1) Protein [Mass/volume] 6.7 g/dL 6.1-8.1 in Serum or Plasma (test code = 2885-2) Albumin [Mass/volume] 4.6 g/dL 3.6-5.1 in Serum or Plasma (test code = 1751-7) Globulin [Mass/volume] 2.1 g/dL (calc) 1.9-3.7 in Serum by calculation (test code = 61081-5) Albumin/Globulin [Mass 2.2 (calc) 1.0-2.5 Ratio] in Serum or Plasma (test code = 1759-0) Bilirubin.total 0.4 mg/dL 0.2-1.2 [Mass/volume] in Serum or Plasma (test code = 1974-) Alkaline phosphatase 72 U/L 37-153 [Enzymatic activity/volume] in Serum or Plasma (test code = 6768-6) Aspartate 53 U/L 10-35 H aminotransferase [Enzymatic activity/volume] in Serum or Plasma (test code = 1920-8) Alanine 62 U/L 6-29 H aminotransferase [Enzymatic activity/volume] in Serum or Plasma (test code = 1742-6) [facility]/Hemoglobin.total in [id number] 00:00:00 Test Item Value Reference Range Interpretation Comments Hemoglobin 5.7 % of total HGB <5.7 H A1c/Hemoglobin.total in Blood (test code = 4548-4) [facility] HospitalEnceldg38-Xnybkpzlpaogvn D3+25-Hydroxyvitamin D2 [Mass/volume] in Serum or [id number] 00:00:00 Test Item Value Reference Range Interpretation Comments 25-hydroxyvitamin D3 [Mass/volume] 36 NG/mL 30-100 in Serum or Plasma (test code = 1988-09) [facility] W Auto Differential panel - [id number] 00:00:00 Test Item Value Reference Range Interpretation Comments Leukocytes [#/volume] in 7.9 thousand/uL 3.8-10.8 Blood by Automated count (test code = 6690-2) Erythrocytes [#/volume] in 4.71 million/uL 3.80-5.10 Blood by Automated count (test code = 789-8) Hemoglobin [Mass/volume] in 14.5 g/dL 11.7-15.5 Blood (test code = 718-7) Hematocrit [Volume Fraction] 43.0 % 35.0-45.0 of Blood by Automated count (test code = 4544-3) Erythrocyte mean corpuscular 91.3 fL 80.0-100.0 volume [Entitic volume] by Automated count (test code = 787-2) Erythrocyte mean corpuscular 30.8 pg 27.0-33.0 hemoglobin [Entitic mass] by Automated count (test code = 785-6) Erythrocyte mean corpuscular 33.7 g/dL 32.0-36.0 hemoglobin concentration [Mass/volume] by Automated count (test code = 786-4) Erythrocyte distribution 12.5 % 11.0-15.0 width [Ratio] by Automated count (test code = 788-0) Platelets [#/volume] in Blood 302 thousand/uL 140-400 by Automated count (test code = 777-3) Platelet mean volume [Entitic 9.7 fL 7.5-12.5 volume] in Blood by Nicolás-Daniel (test code = 776-5) Neutrophils [#/volume] in 4701 cells/uL 5846-9819 Blood by Automated count (test code = 751-8) Lymphocytes [#/volume] in 2323 cells/uL 850-3900 Blood by Automated count (test code = 731-0) Monocytes [#/volume] in Blood 679 cells/uL 200-950 by Automated count (test code = 742-7) Eosinophils [#/volume] in 150 cells/uL 15-500 Blood by Automated count (test code = 711-2) Basophils [#/volume] in Blood 47 cells/uL 0-200 by Automated count (test code = 704-7) Neutrophils/100 leukocytes in 59.5 % Blood by Automated count (test code = 770-8) Lymphocytes/100 leukocytes in 29.4 % Blood by Automated count (test code = 736-9) Monocytes/100 leukocytes in 8.6 % Blood by Automated count (test code = 5905-5) Eosinophils/100 leukocytes in 1.9 % Blood by Automated count (test code = 713-8) Basophils/100 leukocytes in 0.6 % Blood by Automated count (test code = 706-2) [facility]Presence] in Stomach by urea breath test 2021-07-13 00:00:00 Test Item Value Reference Range Interpretation Comments Helicobacter pylori [Presence] not detected not detected in Stomach by urea breath test (test code = 95412-8) [facility] Hospital[facility] Ag 125 [Units/volume] in Serum or [id number] 00:00:00 Test Item Value Reference Range Interpretation Comments Cancer Ag 125 [Units/volume] in Serum 11 U/mL <35 or Plasma (test code = 16553-0) [facility] HEAD AND [id number] 11:06:00 FAX: Damaris Coleman [phone] [place]: St: REG FAX: Kelly Horn MD [phone] -- Name: [facility] : 1960 Age/S: 57/F [address] [facility] Unit #: [id number] Loc: [place], [place] Phys: [place] [id number] Acct: [id number] Dis Date: Status: REG CLI PHONE #: [phone] Exam Date: 10/13/2018 1032 FAX #: [phone] Reason: HYPOTHYROIDISM EXAMS: CPTCODE: [id number] US HEAD AND NECK 24415 ULTRASOUND: - US HEAD AND NECK History: Hypothyroidism Comparison: None. B-mode/Brennan scale imaging with color Doppler perfusion imaging and spectral analysis wasperformed. Isthmus tissue appears to be normal at 2.2 mm. The right thyroid lobe is 4.4 x 1.5 x 1.6cm normal perfusion. There is a well circumscribed oval nodule, homogeneous at 1.9 x 1.2 x 1.4 cm inthe upper pole. The left thyroid lobe is 3.4 x 1.1 x 1.3 cm appearing to be more homogeneous and well-perfused. Tiny nodule at 4.5 x 3.5 x 3 mm midpole. IMPRESSION: Small thyroid nodules, single, 1 per lobe. The larger nodule in the right thyroid lobe appears to be very homogeneous and circumscribed making it less suspicious. Normal thyroid size and appearance otherwise. Follow-up in 6 months may behelpful to show stability of the right thyroid nodule given the lack of a previous study. Location: 19 at 1106 Reported and signed by: Kwame Cole M.D. CC: Damaris Landin MD; Kelly Granado MD Technologist: ANALI CHOPRA Trnscrd Date/Time/By: 10/13/2018 (4783) : By: [facility] PAGE 1 Signed Report FAX: Damaris Coleman [phone] [place]: St: REG FAX: Kelly Horn MD [phone] Name: [facility] MOR[facility] : 1960 Age/S: 57/F [address] [facility] Unit #: [id number] Loc: [place], [place] [id number] Acct: [id number] Dis Date: Status: REG CLI PHONE #: [phone] Exam Date: 10/13/2018 1032 FAX #: [phone] Reason: HYPOTHYROIDISM EXAMS: CPT CODE: [id number] HEAD AND NECK 83145 (Continued) Orig Print D/T: S: 10/13/2018 (1110) PAGE 2 Signed Report
--- NOTE | 2023-06-15 18:02 | RAD REPORT ---
EXAM DESCRIPTION: CT - Ct Stroke Brain Wo Cont - 06/15/2023 5:50 pm CLINICAL HISTORY: STROKE ALERT COMPARISON: No comparisons TECHNIQUE: All CT scans are performed using dose optimization technique as appropriate and may inclu de automated exposure control or mA/KV adjustment according to patient size. FINDINGS: No intracranial hemorrhage, hydrocephalus or extra-axial fluid collection.No areas of brai n edema or evidence of midline shift. The paranasal sinuses and mastoids are clear. The calvarium is intact. IMPRESSION: No acute intracranial abnormality. Conveyed to Dr. Taylor by Dr. Crystal at 1753 on 06/15/23.
[2023-06-15 18:03] LABS: Protime INR 1.14
[2023-06-15 18:11] LABS: Absolute Lymphocytes (CBC) 1.9 K/uL (0.7-4.9); Hematocrit 43.7 % (36.0-45.0); Lymphocytes % 36.6 % (15.3-44.8); MCV 93.8 fL (80-100); MPV 7.4 fL (7.6-11.3); Platelets 234 thou/uL (152-406); RBC Red Blood Cell Count 4.66 M/uL (3.86-4.86)
--- NOTE | 2023-06-15 18:15 | RAD REPORT ---
EXAM DESCRIPTION: CT - Head angio - 06/15/2023 6:02 pm CLINICAL HISTORY: STROKE ALERT COMPARISON: Ct Stroke Brain Wo Cont dated 06/15/2023 TECHNIQUE: CT angiography of the head was performed with maximum intensity reformatted images. 3D ma ximum intensity pixel (MIP) reconstructions were created All CT scans are performed using dose optimization technique as appropriate and may include automated exposure control or mA/KV adjustment according to patient size. FINDINGS: Anterior circulation: No aneurysm or large vessel occlusion. No hemodynamically significant stenosis. No arteriovenous malf ormation identified. Posterior circulation: No aneurysm or large vessel occlusion. No hemodynamically significant stenosis. No arteriovenous malf ormation identified. IMPRESSION: No significant flow abnormality is detected.
[2023-06-15 18:17] LABS: Albumin 3.4 g/dL (3.4-5.0); Bilirubin Direct 0.2 mg/dL (0-0.2); Bilirubin Indirect, Calculated 0.2 mg/dL (0.2-0.8); Bilirubin Total 0.4 mg/dL (0.2-1.0); Magnesium 2.4 mg/dL (1.6-2.4); Potassium 3.5 mEq/L (3.5-5.1); Protein, Total 7.2 g/dL (6.4-8.2); Troponin High Sensitivity 5.2 pg/mL (<58.9)
--- NOTE | 2023-06-15 18:17 | RAD REPORT ---
EXAM DESCRIPTION: CT - Neck Angio - 06/15/2023 6:03 pm CLINICAL HISTORY: cva COMPARISON: No comparisons TECHNIQUE: CT angiography of the neck vessels was performed with maximum intensity reformatted image s. CAROTID STENOSIS REFERENCE USING NASCET CRITERIA: Mild - <50% stenosis. Moderate - 50-69% stenosis. Severe - 70-94% stenosis. Near occlusion - 95-99% stenosis. Occluded - 100% stenosis. All CT scans are performed using dose optimization technique as appropriate and may include automated exposure control or mA/KV adjustment according to patient size. FINDINGS: A left aortic arch is identified with normal three vessel configuration of the great vesse ls. Aberrant right subclavian artery. No significant flow abnormality is seen of the common carotid bilaterally. No significant stenosis is identified involving the cervical segments of both internal carotid arteri es. Normal flow is seen within both vertebral arteries. 8 mm nodule in the right lobe of the thyroid. Does not require follow-up. Multilevel degenerative kervin nges are present in the spine. IMPRESSION: No significant flow abnormality of the neck vessels is identified.
--- NOTE | 2023-06-15 18:35 | RAD REPORT ---
EXAM DESCRIPTION: RAD - Chest Single View - 06/15/2023 6:11 pm CLINICAL HISTORY: COUGH COMPARISON: Chest Pa And Lat (2 Views) dated 01/21/2023 FINDINGS: Lines: None. Lungs: No evidence of edema or pneumonia. Pleural: No significant pleural effusions or pneumothorax. Cardiac: The heart size is within normal limits. Mediastinum: Within normal limits. Bones: No acute fractures. Other: None IMPRESSION: No acute cardiopulmonary disease.
--- NOTE | 2023-06-15 20:05 | ER ---
Nurse's Notes [facility] Name: Fransisco Larson Age: 62 yrs Sex: Female : 1960 Arrival Date: 06/15/2023 Time: 17:05 Bed 6 Private MD: Diagnosis: Transient cerebral ischemic attack, unspecified Presentation: 06/15 17:18 Chief complaint: Patient states: Dizzy, nausea, face numb, blurred vision started today ll1 around 3481-7867. Has had cough also. Coronavirus screen: Client denies travel out of the [place] in the last 14 days. cough unrelated to allergies, fatigue, headache, muscle pain, nausea, Client presents with at least one sign or symptom that may indicate coronavirus-19. Standard/surgical mask placed on the client. Ebola Screen: Patient denies travel to an Ebola-affected area in the 21 days before illness onset. Initial Sepsis Screen: Does the patient meet any 2 criteria? No. Patient's initial sepsis screen is negative. Does the patient have a suspected source of infection? No. Patient's initial sepsis screen is negative. Risk Assessment: Do you want to hurt yourself or someone else? Patient reports no desire to harm self or others. Onset of symptoms was June 15, 2023. 17:18 Method Of Arrival: Ambulatory ll1 17:18 Acuity: PENNIE 2 ll1 Historical: - Allergies: 17:20 SHELLFISH; rs5 - PMHx: 18:32 hysterectomy; prediabetees; rs5 17:20 "thyroid issues"; rs5 - Immunization history:: Adult Immunizations up to date. - Social history:: Smoking status: Patient denies any tobacco usage or history of. - Family history:: not pertinent. Screenin:[facility] ED Fall Risk Assessment (Adult) History of falling in the last 3 months, rs5 including since admission No falls in past 3 months (0 pts) Confusion or Disorientation No (0 pts) Intoxicated or Sedated No (0 pts) Impaired Gait No (0 pts) Mobility Assist Device Used No (0 pt) Altered Elimination No (0 pt) Score/Fall Risk Level 0 - 2 = Low Risk Oriented to surroundings, Maintained a safe environment. Abuse screen: Denies threats or abuse. Nutritional screening: No deficits noted. Tuberculosis screening: No symptoms or risk factors identified. Assessment: 17:15 General: Appears in no apparent distress. uncomfortable, Behavior is calm, cooperative. rs5 Pain: Denies pain. Neuro: Level of Consciousness is awake, alert, obeys commands, Oriented to person, place, time, situation, Roving Winder are equal bilaterally Moves all extremities. Gait is steady, Speech is normal, Facial symmetry appears normal, Pupils are PERRLA, Pupil Size: 3 mm Intact Babinski no response. Cardiovascular: Heart tones S1 S2 present Patient's skin is warm and dry. Rhythm is regular. Respiratory: Airway is patent Respiratory effort is even, unlabored, Respiratory pattern is regular, symmetrical, Breath sounds are clear bilaterally. 17:15 Neuro: Reports blurred vision since 06/14/23 dizziness, since 06/14/23 Pt reports "I've rs5 been having intermittent blurred vision, dizziness, and the left side of my face has been feeling numb since yesterday morning. I'm not having blurred vision or dizziness now but the left side of my face does feel a bit numb.". GI: Abdomen is round non-distended, Bowel sounds present X 4 quads. Abd is soft and non tender X 4 quads. : No signs and/or symptoms were reported regarding the genitourinary system. EENT: No signs and/or symptoms were reported regarding the EENT system. EENT: Derm: Skin is intact, Skin is pink, warm \\T\\ dry. Musculoskeletal: Range of motion: intact in all extremities. 18:20 Reassessment: Patient and/or family updated on plan of care and expected duration. Pain rs5 level reassessed. Patient is alert, oriented x 3, equal unlabored respirations, skin warm/dry/pink. 19:40 General: Appears comfortable, Behavior is calm, cooperative. Pain: Denies pain. Neuro: ha1 Level of Consciousness is awake, alert, obeys commands, Oriented to person, place, time, situation. Neuro: Reports dizziness, weakness. Cardiovascular: Heart tones S1 S2 present Capillary refill < 3 seconds Patient's skin is warm and dry. Respiratory: Airway is patent Respiratory effort is even, unlabored, Respiratory pattern is regular, symmetrical. Derm: Skin is pink, warm \\T\\ dry. Vital Signs: 17:18 BP 163 / 75; Pulse 73; Resp 18; Temp 98; Pulse Ox 98% ; ll1 17:20 BP 125 / 60; Pulse 76; Resp 17; Temp 97.9(O); Pulse Ox 99% on R/A; rs5 19:55 BP 100 / 87; Pulse 74; Resp 18 S; Pulse Ox 99% on R/A; as6 21:30 BP 141 / 68; Pulse 73; Resp 18 S; Pulse Ox 98% on R/A; ha1 22:02 BP 141 / 72; Pulse 77; Resp 18 S; Pulse Ox 99% on R/A; as6 NIH Stroke Scale Scores: 17:15 NIHSS Score: 0 rs5 ED Course: 17:09 Patient arrived in ED. mg5 17:10 Abner Taylor MD is Attending Physician. rt 17:15 Patient has correct armband on for positive identification. Placed in gown. Bed in low rs5 position. Call light in reach. Side rails up X2. 17:18 Arm band placed on Patient placed in an exam room, on a stretcher. ll1 17:19 Triage completed. ll1 17:20 Inserted saline lock: 22 gauge in left antecubital area, using aseptic technique. Blood rs5 collected. 17:36 Hilton Villegas, RN is Primary Nurse. rs5 17:52 CT Stroke Brain w/o Contrast In Process Unspecified. EDMS 18:04 CT Head Angio In Process Unspecified. EDMS 18:04 CT Neck Angio In Process Unspecified. EDMS 18:13 Stroke CXR 1 View In Process Unspecified. EDMS 20:03 Heidi Ramírez MD is Hospitalizing Provider. rt 23:42 No provider procedures requiring assistance completed. Patient admitted, IV remains in as6 place. 23:43 Provided Education on: need for admit. as6 Administered Medications: No medications were administered Medication: 22:03 VIS not applicable for this client. as6 Outcome: 20:04 Decision to Hospitalize by Provider. rt 23:43 Admitted to Tele accompanied by tech, family with patient, via stretcher, with chart, as6 23:43 Condition: stable 23:43 Instructed on the need for admit, 23:43 Patient left the ED. as6 NIH Stroke Scale - NIH Stroke Score Date: 06/15/2023 Time: 17:15 Total Score = 0 10. Dysarthria (speech clarity - read or repeat words) - 0(Normal) 11. Extinction and Inattention (visual/tactile/auditory/spatial/personal) - 0(No abnormality) 1a. Level of Consciousness (LOC) - 0(Alert) 1b. Level of Consciousness (LOC) (Month \\T\\ Age) - 0(Both) 1c. LOC Commands (Open \\T\\ Closes Eyes/Soil Chemist) - 0(Both) 2. Best Gaze (Lateral Gaze Paresis) - 0(Normal) 3. Visual Field Loss - 0(No visual loss) 4. Facial Palsy - 0(Normal) 5a. Left Arm: Motor (10-second hold) - 0(No drift) 5b. Right Arm: Motor (10-second hold) - 0(No drift) 6a. Left Leg: Motor (5-second hold - always test supine) - 0(No drift) 6b. Right Leg: Motor (5-second hold - always test supine) - 0(No drift) 7. Limb Ataxia (finger/nose \\T\\ heel/anna - test with eyes open) - 0(Absent) 8. Sensory Loss (pinprick arms/legs/face) - 0(Normal) 9. Best Language: Aphasia (description/naming/reading) - 0(No aphasia) Initials: [facility] Signatures: Dispatcher [employer] EDMS Maddi English RN RN ll1 Giovani Alberts RN RN as6 Juani Fernando RN RN ha1 Abner Taylor MD MD rt Hilton Villegas RN RN rs5 Alejandra Stout mg5 Corrections: (The following items were deleted from the chart) 18:39 17:20 Allergies: No Known Allergies; [place] [id number] 18:39 17:20 Home Meds: "thyroid issues"; [place] [id number] 18:43 17:15 Neuro: Reports blurred vision since 06/14/23 dizziness, since 06/14/23 Pt 5 reports "I've been having intermittent blurred vision, dizziness, and the left side of my face has been feeling numb since yesterday morning.". rs5
--- NOTE | 2023-06-15 20:05 | EDPHYS ---
Physician Documentation [facility] Name: Fransisco Larson Age: 62 yrs Sex: Female : 1960 Arrival Date: 06/15/2023 Time: 17:05 Bed 6 Private MD: ED Physician Abner Taylor HPI: 06/15 20:50 This 62 yrs old Female presents to ER via Ambulatory with complaints of Dizziness, rt Numbness Of Face, Difficulty Swallowing, Blurred Vision. 20:50 Patient presents to the ED with dizziness which she states has been present for few rt days, states that it worsened today with some gait disturbance. She reported having numbness to her face, reported slurred speech. Reports numbness to the lips as well. Denies other acute complaints at this time, symptoms are moderate severity, no other aggravating alleviating factors.. Historical: - Allergies: 17:20 SHELLFISH; rs5 - PMHx: 18:32 hysterectomy; prediabetees; rs5 17:20 "thyroid issues"; rs5 - Immunization history:: Adult Immunizations up to date. - Social history:: Smoking status: Patient denies any tobacco usage or history of. - Family history:: not pertinent. ROS: 20:50 Constitutional: Negative for fever, chills, and weight loss, Cardiovascular: Negative rt for chest pain, palpitations, and edema, Respiratory: Negative for shortness of breath, cough, wheezing, and pleuritic chest pain, Abdomen/GI: Negative for abdominal pain, nausea, vomiting, diarrhea, and constipation, MS/Extremity: Negative for injury and deformity, Skin: Negative for injury, rash, and discoloration, Psych: Negative for depression, anxiety, suicide ideation, homicidal ideation, and hallucinations, 20:50 Neuro: Positive for dizziness, numbness, speech changes, Exam: 20:50 ECG was reviewed by the Attending Physician. rt 20:50 Neuro: Sensory deficit to the right side of the face, no facial droop, cranial nerves otherwise intact, strength and sensation intact in upper and lower extremities. Slight dysarthria and no fluency of speech noted. No ataxia [id number], no visual field deficits, Vital Signs: 17:18 BP 163 / 75; Pulse 73; Resp 18; Temp 98; Pulse Ox 98% ; ll1 17:20 BP 125 / 60; Pulse 76; Resp 17; Temp 97.9(O); Pulse Ox 99% on R/A; rs5 19:55 BP 100 / 87; Pulse 74; Resp 18 S; Pulse Ox 99% on R/A; as6 21:30 BP 141 / 68; Pulse 73; Resp 18 S; Pulse Ox 98% on R/A; ha1 22:02 BP 141 / 72; Pulse 77; Resp 18 S; Pulse Ox 99% on R/A; as6 NIH Stroke Scale Scores: 17:15 NIHSS Score: 0 rs5 MDM: 17:14 Patient medically screened. rt 20:50 Differential diagnosis: CVA, near syncope, TIA. Data reviewed: vital signs, nurses rt notes, lab test result(s), EKG, radiologic studies. Consideration of Admission/Observation Patient was admitted/placed on observation. Management of patient was discussed with the following: Hospitalist: Agrees to admit. I considered the following discharge prescriptions or medication management in the emergency department Medications were administered in the Emergency Department. See MAR. Independent interpretation of the following test(s) in the Emergency Department CT Scan: My interpretation is No hemorrhage seen on interpretation of CT scan images. Care significantly affected by the following chronic conditions: Diabetes. Counseling: I had a detailed discussion with the patient and/or guardian regarding the historical points, exam findings, and any diagnostic results supporting the discharge/admit diagnosis, lab results, radiology results, the need for further work-up and treatment in the hospital. ED course: Neurologic symptoms have started previous to today, this contraindicates thrombolytic administration.. 06/15 17:31 Order name: Basic Metabolic Panel; Complete Time: 18:39 rt 06/15 17:31 Order name: CBC with Diff; Complete Time: 18:39 rt 06/15 17:31 Order name: Hepatic Function; Complete Time: 18:39 rt 06/15 17:31 Order name: High Sensitivity Troponin; Complete Time: 18:39 rt 06/15 17:31 Order name: Magnesium; Complete Time: 18:39 rt 06/15 17:31 Order name: Protime (+inr); Complete Time: 18:39 rt 06/15 17:31 Order name: Ptt, Activated; Complete Time: 18:39 rt 06/15 21:07 Order name: SARS RAPID; Complete Time: 23:13 sb4 06/15 21:07 Order name: Flu; Complete Time: 23:13 sb4 06/15 17:31 Order name: CT Head Angio; Complete Time: 18:39 rt 06/15 17:31 Order name: CT Neck Angio; Complete Time: 18:39 rt 06/15 17:31 Order name: CT Stroke Brain w/o Contrast; Complete Time: 18:39 rt 06/15 17:31 Order name: Stroke CXR 1 View; Complete Time: 18:39 rt 06/15 17:31 Order name: EKG; Complete Time: 17:32 rt 06/15 17:31 Order name: Accucheck; Complete Time: 18:20 rt 06/15 17:31 Order name: Cardiac monitoring; Complete Time: 18:20 rt 06/15 17:31 Order name: EKG - Nurse/Tech; Complete Time: 18:20 rt 06/15 17:31 Order name: IV Saline Lock; Complete Time: 18:20 rt 06/15 17:31 Order name: Labs collected and sent; Complete Time: 18:20 rt 06/15 17:31 Order name: NPO; Complete Time: 18:20 rt 06/15 17:31 Order name: O2 Per Protocol; Complete Time: 18:20 rt 06/15 17:31 Order name: O2 Sat Monitoring; Complete Time: 18:20 rt 06/15 17:31 Order name: Stroke Swallow Screen; Complete Time: 18:20 rt EC:50 Rate is 79 beats/min. Rhythm is regular, Normal Sinus Rhythm with No ectopy. Right axis rt deviation noted. WI interval is normal. QRS interval is normal. QT interval is normal. No Q waves. T waves are Normal. No ST changes noted. Interpreted by me. Administered Medications: No medications were administered Disposition Summary: 06/15/23 20:04 Hospitalization Ordered Notes: Hospitalization Status: Observation rt Provider: Heidi Ramírez rt Location: Telemetry/MedSurg (observation) rt Condition: Stable rt Problem: new rt Symptoms: have improved rt Bed/Room Type: Standard rt Room Assignment: 406(06/15/23 21:22) rv1 Diagnosis - Transient cerebral ischemic attack, unspecified rt Forms: - Medication Reconciliation Form rt - SBAR form rt - Leadership Thank You Letter rt NIH Stroke Scale - NIH Stroke Score Date: 06/15/2023 Time: 17:15 Total Score = 0 10. Dysarthria (speech clarity - read or repeat words) - 0(Normal) 11. Extinction and Inattention (visual/tactile/auditory/spatial/personal) - 0(No abnormality) 1a. Level of Consciousness (LOC) - 0(Alert) 1b. Level of Consciousness (LOC) (Month \\T\\ Age) - 0(Both) 1c. LOC Commands (Open \\T\\ Closes Eyes/Risk Management Consultant) - 0(Both) 2. Best Gaze (Lateral Gaze Paresis) - 0(Normal) 3. Visual Field Loss - 0(No visual loss) 4. Facial Palsy - 0(Normal) 5a. Left Arm: Motor (10-second hold) - 0(No drift) 5b. Right Arm: Motor (10-second hold) - 0(No drift) 6a. Left Leg: Motor (5-second hold - always test supine) - 0(No drift) 6b. Right Leg: Motor (5-second hold - always test supine) - 0(No drift) 7. Limb Ataxia (finger/nose \\T\\ heel/anna - test with eyes open) - 0(Absent) 8. Sensory Loss (pinprick arms/legs/face) - 0(Normal) 9. Best Language: Aphasia (description/naming/reading) - 0(No aphasia) Initials: rs5 Signatures: Dispatcher [employer] Maddi Lee, RN RN ll1 Marlyn Aly, PA-C PA-C sb4 Abner Taylor MD MD rt Adelina Patterson rv1 Hilton Villegas, ROSELYN RN rs5 Corrections: (The following items were deleted from the chart) 18:39 17:20 Allergies: No Known Allergies; rs5 rs5 18:39 17:20 Home Meds: "thyroid issues"; rs5 rs5 21:22 20:04 rt rv1
--- NOTE | 2023-06-15 20:10 | P.HP ---
Certification for Inpatient Patient admitted to: Observation With expected LOS: <2 Midnights Patient will require the following post-hospital care: None Practitioner: I am a practitioner with admitting privileges, knowledge of patient current condition, hospital course, and medical plan of care. Services: Services provided to patient in accordance with Admission requirements found in Title 42 Section 412.3 of the Code of Federal Regulations Patient History Date of Service: 06/15/23 Primary Care Provider: German Reason for admission: CVA Rule Out History of Present Illness: Ms. Larson is a 62 year old female with past medical history of chronic cough, prediabetes, and thyroid nodule who presented to the emergency department with complaints of dizziness, facial numbness/tinging, and slurred speech. She states she has been feeling like she's drunk but has not had any alcohol. She was out of the window for any intervention in the emergency department. Stroke work up was done and was negative. She states her symptoms have improved but is very vague with her answers, so my neurologic exam is limited. No unilateral weakness, facial droop, or aphasia noted, although states her speech sounds slurred. She states that her sensation on her face, hands, and feet feels "abnormal" but cannot elaborate. Vital signs have been stable. We will admit for CVA rule out. Allergies shellfish derived Allergy (Verified 06/15/23 21:37) Hives/Rash Home medications list reviewed: Yes - Past Medical/Surgical History Diabetic: No -: Prediabetic -: Chronic cough -: Thyroid nodule -: Hysterectomy Psychosocial/ Personal History: . lives at home with her - Family History Family History: Reviewed- Non-Contributory - Social History Smoking Status: Never smoker Alcohol use: Yes CD- Drugs: No Caffeine use: Yes Place of Residence: Home Review of Systems 10-point ROS is otherwise unremarkable ENT: Nose Congestion Respiratory: Cough Neurological: Numbness, Incoordination, Change in Speech, As per HPI Physical Examination - Vital Signs Temperature: 97.9 F Blood Pressure: 100/87 Pulse: 74 Respirations: 18 Pulse Ox (%): 99 - Physical Exam General: Alert, In no apparent distress HEENT: Atraumatic, EOMI, Sclerae nonicteric Neck: Supple, JVD not distended Respiratory: Clear to auscultation bilaterally, Normal air movement Cardiovascular: Regular rate/rhythm, Normal S1 S2 Gastrointestinal: Normal bowel sounds, No tenderness Musculoskeletal: No tenderness Integumentary: No rashes Neurological: Normal gait, Normal speech, Normal strength at 5/5 x4 extr, Normal affect, Abnormal sensation - Studies Laboratory Data (last 24 hrs) 06/15/23 06/15/23 06/15/23 17:40 17:40 17:40 WBC 5.10 Hgb 14.7 Hct 43.7 Plt Count 234 PT 12.5 INR 1.14 APTT 35.8 Sodium 137 Potassium 3.5 BUN 12 Creatinine 0.78 Glucose 124 H Magnesium 2.4 Total Bilirubin 0.4 AST 87 H ALT 116 H Alkaline Phosphatase 70 Assessment and Plan - Problems (Diagnosis) (1) TIA (transient ischemic attack) Current Visit: Yes Status: Acute (2) Hypothyroid Current Visit: Yes Status: Chronic Qualifiers: Hypothyroidism type: unspecified Qualified Code(s): E03.9 - Hypothyroidism, unspecified (3) Pre-diabetes Current Visit: Yes Status: Chronic (4) Elevated LFTs Current Visit: Yes Status: Chronic - Plan Patient is admitted for CVA rule out. Head CT and head/neck angios negative. MRI stroke protocol and echo ordered. Check lipid panel and TSH. Patient states her LFTs are chronically elevated. Frequent neurologic checks. PT and speech therapy evaluation. Monitor and replete electrolytes per protocol. Reconcile and continue home medications. Lovenox for VTE prophylaxis. Full code. Discharge Plan: Home Plan to discharge in: 24 Hours - Advance Directives Does patient have a Living Will: No Does patient have a Durable POA for Healthcare: No - Code Status/Comfort Care Code Status Assessed: Yes Code Status: Full Code Physician Review: Patient Assessed, Agree with Above Assessment and Plan Critical Care: No Time Spent Managing Pts Care (In Minutes): 50
[2023-06-15 22:07] LABS: SARS-CoV-2 Antigen Rapid Res Negative (Negative)
[2023-06-15] MEDS ORDERED: ACETAMINOPHEN 500 MG TAB PO PRN (22:54)
[2023-06-15] MEDS ORDERED: ATORVASTATIN 20 MG TAB PO SCH (22:54)
[2023-06-15] MEDS ORDERED: ONDANSETRON 4 MG/2 ML VIAL IV PRN (22:54)
[2023-06-16 01:52] VITALS: BMI 39.6
[2023-06-16 04:15] LABS: Hematocrit 43.7 % (36.0-45.0); Lymphocytes % 37.2 % (15.3-44.8); MCV 93.4 fL (80-100); MPV 7.7 fL (7.6-11.3); Platelets 219 thou/uL (152-406); RBC Red Blood Cell Count 4.68 M/uL (3.86-4.86)
[2023-06-16 04:48] LABS: Magnesium 2.5 mg/dL (1.6-2.4); Phosphorus 2.5 mg/dL (2.5-4.9); Potassium 3.6 mEq/L (3.5-5.1); Thyroid Stimulating Hormone 0.451 uIU/mL (0.358-3.740)
[2023-06-16] MEDS ORDERED: ENOXAPARIN 40 MG/0.4 ML SQ SCH (09:00)
[2023-06-16] MEDS ORDERED: POTASSIUM CL SA 10 MEQ TAB PO ONE (09:00)
[2023-06-16] MEDS ORDERED: ASPIRIN EC 81 MG TAB PO SCH (09:00)
--- NOTE | 2023-06-16 10:42 | EKG ---
Test Date: 2023-06-15 Test Time: 18:11:22 Aquatic Laborer: ALBERT MEASUREMENT RESULTS: Intervals: Rate: 79 [place]: 148 QRSD: 92 QT: 410 QTc: 470 [place]: P: 83 [place]: 148 QRS: 90 T: 81 INTERPRETIVE STATEMENTS: Normal sinus rhythm Right atrial enlargement Rightward axis Pulmonary disease pattern Abnormal ECG No previous ECG available for comparison Electronically Signed On 06-16-23 10:41:24 MOLD COOLER by Justo Acosta
--- NOTE | 2023-06-16 11:23 | ECHO ---
HEIGHT: 5 ft 11 in WEIGHT: 284 lb 0 oz DATE OF STUDY: 06/16/[address]: Marlyn Aly 2-DIMENSIONAL: YES M.MODE: YES DOPPLER: YES COLOR FLOW: YES TDS: PORTABLE: YES DEFINITY: BUBBLE STUDY: DIAGNOSIS: STROKE CARDIAC HISTORY: CATHERIZATION: NO SURGERY: NO PROSTHETIC VALVE: NO PACEMAKER: NO MEASUREMENTS (cm) DIASTOLIC (NORMALS) SYSTOLIC (NORMALS) IVSd 1.0 (0.6-1.2) LA Diam 1.7 (1.9-4.0) LVEF 68% LVIDd 4.7 (3.5-5.7) LVIDs 2.9 (2.0-3.5) %FS 38% LVPWd 1.0 (0.6-1.2) Ao Diam 2.1 (2.0-3.7) 2 DIMENSIONAL ASSESSMENT: RIGHT ATRIUM: NORMAL LEFT ATRIUM: NORMAL RIGHT VENTRICLE: NORMAL LEFT VENTRICLE: NORMAL TRICUSPID VALVE: NORMAL MITRAL VALVE: NORMAL PULMONIC VALVE: NOT SEEN AORTIC VALVE: NORMAL PERICARDIAL EFFUSION: TRACE AORTIC ROOT: NORMAL LEFT VENTRICULAR WALL MOTION: NORMAL DOPPLER/COLOR FLOW: NORMAL COMMENTS: 1. POOR WINDOWS 2. NORMAL LEFT VENTRICULAR EJECTION FRACTION 60-65% WITH NORMAL WALL MOTION 3. NORMAL RIGHT VENTRICULAR FUNCTION TECHNOLOGIST: EDDIE LUU
[2023-06-16 12:40] VITALS: O2SAT 94
[2023-06-16] MEDS ORDERED: LORazepam 2 MG/ML VIAL IV ONE (13:03)
[2023-06-16 15:54] VITALS: BP 116/70; TEMP 97.6
--- NOTE | 2023-06-16 16:47 | RAD REPORT ---
EXAM DESCRIPTION: MRI - Brain Wo Cont - 06/16/2023 2:56 pm CLINICAL HISTORY: cva rule out COMPARISON: Noncontrast head CT of the same day. TECHNIQUE: Multiplanar multisequence MRI of the brain performed without IV contrast. FINDINGS: No evidence of acute infarct or other diffusion signal abnormality. No evidence of acute intracranial hemorrhage or abnormal extra-axial fluid collections. Ventricular caliber within normal for age. Midline structures are unremarkable. Scattered subcortical and deep white matter T2/FLAIR hyperintensities, nonspecific, but suggestive of chronic small vessel ischemic changes. No mass effect or midline shift. Major vascular flow voids are preserved. Mastoid air cells and paranasal sinuses are clear. IMPRESSION: No acute intracranial process. No evidence of ventriculomegaly or mass effect. Subtle nonspecific periventricular and deep white matter foci of T2/FLAIR hyperintensity, most sugges tive of mild chronic small vessel ischemic changes.
[2023-06-17 22:15] LABS: T4,Total 13.7 ug/dL (4.8-13.9)
== END 2023-06-16 19:39 | disposition home or self-care (01) ==
LOC: ER 17:05 → 4TH 20:06
PROVIDERS: ADMIT Hospitalist; ATTEND Hospitalist
DX: G45.9 Transient cerebral ischemic attack, unspecified (principal); R47.81 Slurred speech; E03.9 Hypothyroidism, unspecified; R73.03 Prediabetes; R79.89 Other specified abnormal findings of blood chemistry; R29.700 NIHSS score 0; Z11.52 Encounter for screening for COVID-19; Z91.013 Allergy to seafood
CPT/HCPCS: 93005; 93306; 85025 ×2; 80048 ×2; 36415; 83735 ×2; 84100; 85610; 80061; 80076; 85730; 84436; 84443; 84484; 87804 ×2; 70496; 70498; 70450; 71045; 70551; 92523; 92610; 97112; 97161; 99285; 87811; Q9967; J1650; G0378 ×3